=== PATIENT | female | born 1960 | race African-American/Black ===

== ENCOUNTER 2017-11-26 15:34 | Inpatient (IN) | payer OTHER ==
[2017-11-26 16:06] VITALS: BMI 23.8
--- NOTE | 2017-11-26 18:55 | HP ---
COWS - Scale Resting Pulse: 1= [place] 81-100 Sweatin= Chills/Flushing Restless Observation: 3= Extraneous Movement (TWITCHINGS) Pupil Size: 2= Moderately Dilated Bone or Joint Aches: 4=Acute Joint/Muscle Pain Runny Nose/ Eye Tearin= Runny Nose/Eyes GI Upset > 30mins: 3= Vomiting/Diarrhea (DIARRHEA) Tremor Observation: 1= Tremor [place], Not Seen Yawning Observation: 0= None Anxiety or Irritability: 2=Irritable/Anxious Goose Flesh Skin: 0=Smooth Skin COWS Score: 19 Admission [facility] Chief Complaint: WITHDRAWALS SX FROM HEROIN Allergies/Adverse Reactions: Allergies Allergy/AdvReac Type Severity Reaction Status Date / Time No Known Allergies Allergy Verified 11/26/17 17:31 History of Present Illness: 57 Y/O FEMALE WITH A HX HEROIN DEPENDENCE SEEKING DETOX [place].FIRST TIME HERE. Exam Limitations: No Limitations - Ebola screening Have you traveled outside of the country in the last 21 days: No Have you had contact with anyone from an Ebola affected area: No Have you been sick,other than usual withdrawal symptoms: No Do you have a fever: No - Review of Systems Constitutional: Chills, Loss of Appetite, Night Sweats, Changes in sleep, Unintentional Wgt. Loss EENT: reports: Blurred Vision, Tearing, Nose Congestion, Dental Problems (TOP AND BOTTOM PARTIAL DENTURES) Respiratory: reports: Shortness of Breath (ASTHMA HX-ALBUTEROL AND ADVAIR), Wheezing Cardiac: reports: Lightheadedness GI: reports: Indigestion : reports: No Symptoms Reported Musculoskeletal: reports: Back Pain, Joint Pain (HX DJD/ARTHRITIS), Muscle Pain Integumentary: reports: No Symptoms Reported Neuro: reports: Headache, Seizure (HX SEIZURES--TAKES TRILEPTA 300 MG TWICE A DAY), Dizziness Endocrine: reports: No Symptoms Reported Hematology: reports: Anemia (ON IRON/VIT SUPPLEMENTS) Psychiatric: reports: Orientated x3, Anxious, Depressed Other Systems: Reviewed and Negative Patient History - Patient Medical History Hx Anemia: Yes (ONIRON/VIT SUPPLEMENTS) Hx Asthma: Yes (ALBUTEROL/ADVAIR) Hx Chronic Obstructive Pulmonary Disease (COPD): No Hx Cardiac Disorders: No Hx Hypertension: No Hx Seizures: No Hx Diabetes: No Hx Gastrointestinal Disorders: No Hx Genitourinary Disorders: No Hx Sexually Transmitted Disorders: No Hx Renal Disease (ESRD): No Hx Depression: Yes (AND ANXIETY-ON ZOLOFT,SEROQUEL,KLONOPIN AND VISTARIL) Hx Suicide Attempt: No Hx Bipolar Disorder: Yes Hx Schizophrenia: No - Patient Surgical History Past Surgical History: Yes Hx Neurologic Surgery: No Hx Cataract Extraction: No Hx Cardiac Surgery: No Hx Lung Surgery: No Hx Breast Surgery: No Hx Breast Biopsy: No Hx Abdominal Surgery: No Hx Appendectomy: No Hx Cholecystectomy: No Hx Genitourinary Surgery: No Hx Section: No Hx Orthopedic Surgery: No Hx Hysterectomy: No (7 YRS AGO) Anesthesia Reaction: No - PPD History Previous Implant?: Yes Documented Results: Negative w/o proof Implanted On Prior R Admission?: No PPD to be Administered?: Yes - Reproductive History Patient is a Female of Child Bearing Age (11 -55 yrs old): No (MENOPAUSAL WOMAN) LMP comment: LAST SINCE 7 YRS AGO Patient : No - Smoking Cessation Smoking history: Current every day smoker Have you smoked in the past 12 months: Yes Aproximately how many cigarettes per day: 4 Hx Chewing Tobacco Use: No Initiated information on smoking cessation: Yes 'Breaking Loose' booklet given: 11/26/17 - Substance & Tx. History Hx Alcohol Use: No (DENIES) Hx Substance Use: Yes (HEROIN) Substance Use Type: Heroin Hx Substance Use Treatment: Yes - Substances Abused Heroin Route: Inhalation Frequency: Daily Amount used: 2 bags Age of first use: 55 Date of Last Use: 11/25/17 Family Disease History - Family Disease History Family Disease History: Diabetes: Grandparent (HTN-), Mother (HTN; TRIPLE BYPASS SX-), CA: Sister (LUPUS/CA-), Other: Grandparent, Mother, Sister Admission Physical Exam BHS - Vital Signs Vital Signs: Vital Signs - 24 hr 11/26/17 16:04 Temperature 97.3 F L Pulse Rate 82 Respiratory 18 Rate Blood Pressure 96/66 - Physical General Appearance: Yes: Moderate Distress, Irritable, Anxious HEENTM: Yes: EOMI, Normocephalic, MICHAEL, Pharynx Normal, Nasal Congestion, Rhinorrhea Respiratory: Yes: Chest Non-Tender, Lungs Clear, Normal Breath Sounds, No Respiratory Distress Neck: Yes: No masses,lesions,Nodules, Supple, Trachea in good position Breast: Yes: Breast Exam Deferred Cardiology: Yes: Regular Rhythm, Regular Rate, S1, S2 Abdominal: Yes: Normal Bowel Sounds, Non Tender, Flat Genitourinary: Yes: Other (N/C) Back: Yes: Within Normal Limits Musculoskeletal: Yes: full range of Motion, Gait Steady Extremities: Yes: Normal Range of Motion, Non-Tender 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 WILL ORDER ON ADMISSION . (4) Asthma Current Visit: Yes Status: Chronic Qualifiers: Asthma severity: mild Asthma persistence: unspecified Asthma complication type: uncomplicated Qualified Code(s): J45.909 - Unspecified asthma, uncomplicated (5) Arthritis of knee, degenerative Current Visit: Yes Status: Chronic Qualifiers: Osteoarthritis type: unspecified Laterality: bilateral Qualified Code(s) : M17.0 - Bilateral primary osteoarthritis of knee (6) History of anemia Current Visit: Yes Status: Suspected (7) Anxiety and depression Current Visit: Yes Status: Chronic Cleared for Admission BHS - Detox or Rehab Detox Regimen/Protocol: Methadone [facility] Breath Alcohol Content Breath Alcohol Content: 0 Urine Drug Screen - Results Drug Screen Negative: No Urine Drug Screen Results: OPI-Opiates, TCA-Tricyclic Antidepress, OXY-Oxycodone
[2017-11-26] MEDS ORDERED: MAGNESIUM CITRATE 300 ML BOTTLE PO PRN (19:33)
[2017-11-26] MEDS ORDERED: IBUPROFEN 400 MG TABLET (FP) PO PRN (19:33)
[2017-11-26] MEDS ORDERED: guaiFENesin/D-METHORPHAN HB 10 ML UNIT-DOSE CUPS PO PRN (19:33)
[2017-11-26] MEDS ORDERED: P-EPHED 60MG/TRIPROLIDI 2.5MG TABLET PO PRN (19:33)
[2017-11-26] MEDS ORDERED: MENTHOL/PHENOL 1 EACH UD MM PRN (19:33)
[2017-11-26] MEDS ORDERED: ACETAMINOPHEN 325 MG TABLET (FP) PO PRN (19:33)
[2017-11-26] MEDS ORDERED: MAGNESIUM HYDROX 2400MG/30ML ORAL SUSPENSION 30 ML CUP PO PRN (19:33)
[2017-11-26] MEDS ORDERED: METHADONE HCL 10 MG TABLET (FOR DETOX USE ONLY) PO ONE ×3 (19:33→23:00)
[2017-11-26] MEDS ORDERED: MAG HYDROX/AL HYDROX/SIMETH 30 ML UNIT-DOSE CUP PO PRN (19:33)
[2017-11-26] MEDS ORDERED: LOPERAMIDE HCL 2 MG CAPSULE PO PRN (19:33)
[2017-11-26] MEDS: diazePAM 5 MG TABLET PO PRN (20:49)
[2017-11-26] MEDS: NICOTINE 14 MG/24 HOURS TOPICAL PATCH TD SCH (20:54)
[2017-11-26] MEDS ORDERED: MELATONIN 5 MG TABLETS PO PRN (22:00)
[2017-11-26] MEDS: THIAMINE HCL 100 MG TABLET (FP) PO SCH (22:37)
[2017-11-27 02:03] LABS: URINE APPEARANCE SLCLOUDY; URINE BILIRUBIN NEGATIVE (<2.0 mg/dL); URINE BLOOD NEGATIVE (NEGATIVE); URINE COLOR YELLOW; URINE GLUCOSE (UA) NEGATIVE (NEGATIVE); URINE KETONE NEGATIVE (NEGATIVE); URINE NITRITE NEGATIVE (NEGATIVE); URINE PROTEIN NEGATIVE (NEGATIVE); URINE UROBILINOGEN NEGATIVE mg/dL (0.2-1.0)
[2017-11-27] MEDS: diazePAM 5 MG TABLET PO PRN ×2 (02:12→10:28)
[2017-11-27 02:56] LABS: URINE LEUK ESTERASE 2+ (NEGATIVE)
[2017-11-27 03:31] LABS: EPI CELLS RARE /HPF (FEW); URINE BACTERIA RARE /hpf (NONE SEEN); URINE HYALINE CAST 1 /lpf
[2017-11-27] MEDS ORDERED: ALBUTEROL SO4 18 GM HFA INHALER IH PRN (09:08)
[2017-11-27] MEDS ORDERED: METHADONE HCL 10 MG TABLET (FOR DETOX USE ONLY) PO ONE (10:00)
[2017-11-27] MEDS ORDERED: OXcarbazepine 300 MG TABLET (UD) PO SCH (10:00)
[2017-11-27] MEDS ORDERED: PATIENT'S OWN MEDICATION (NON-FORMULARY) (Nitrofurantoin Monohyd/M-Cryst [Nitrofurantoin M PO SCH (10:00)
[2017-11-27] MEDS ORDERED: NAPROXEN 250 MG TABLET (FP) PO SCH (10:00)
[2017-11-27 10:16] LABS: ALBUMIN 3.2 g/dl (3.4-5.0); ALK PHOS 122 U/L (45-117); ANION GAP 8 (8-16); BLOOD UREA NITROGEN 13 mg/dL (7-18); CALCIUM 8.7 mg/dL (8.5-10.1); CHLORIDE 104 mmol/L (98-107); CO2 26 mmol/L (21-32); CREATININE 0.6 mg/dL (0.55-1.02); GLUCOSE,RANDOM 87 mg/dL (74-106); POTASSIUM 4.4 mmol/L (3.5-5.1); SGOT/AST 34 U/L (15-37); SGPT/ALT 23 U/L (12-78); SODIUM 138 mmol/L (136-145); TOT PROT 6.5 g/dl (6.4-8.2)
[2017-11-27 10:23] LABS: HEMATOCRIT 35.6 % (32.4-45.2); HEMOGLOBIN 11.7 GM/dL (10.7-15.3); MCH 28.6 pg (25.7-33.7); MCHC 32.8 g/dl (32.0-36.0); MEAN PLT VOLUME 6.6 fl (7.5-11.1); PLATELET COUNT 359 K/MM3 (134-434); RBC 4.09 M/mm3 (3.60-5.2); RDW 16.1 % (11.6-15.6); WHITE BLOOD COUNT 5.2 K/mm3 (4.0-10.0)
[2017-11-27] MEDS: PRENATAL VITAMINS W/ FOLIC ACID TABLET (FP) PO SCH (10:27)
[2017-11-27] MEDS: OXcarbazepine 300 MG TABLET (UD) PO SCH ×2 (10:28→22:26)
[2017-11-27] MEDS: NICOTINE 14 MG/24 HOURS TOPICAL PATCH TD SCH (10:29)
[2017-11-27] MEDS: NICOTINE POLACRILEX 2 MG GUM BC PRN (10:30)
--- NOTE | 2017-11-27 10:34 | CONSULT ---
[facility] Psychiatric Consult - Data Date of interview: 11/27/17 Admission source: [facility] Identifying data: This is 57 years old female, single, living in pen[facility], unemployed, on SSI, with history of Bipolar disorder, intoxicated with Heroin and Nicotine, seeking for detox. Patient reports psychiatric hospitalization history as well Substance Abuse History: Smoking history: Current every day smoker. Have you smoked in the past 12 months: Yes. Aproximately how many cigarettes per day: 4. Hx Chewing Tobacco Use: No. Initiated information on smoking cessation: Yes. 'Breaking Loose' booklet given: 11/26/17. - Substance & Tx. History. Hx Alcohol Use: No (DENIES). Hx Substance Use: Yes (HEROIN). Substance Use Type: Heroin. Hx Substance Use Treatment: Yes. - Substances Abused. Heroin. Route: Inhalation. Frequency: Daily. Amount used: 2 bags. Age of first use: 55. Date of Last Use: 11/25/17 Medical History: Deizure, UTI history, Asthma, Anemia history, Both Knees Arthritis Psychiatric History: Patient reports history of Bipolar diusorder, reports history of psychiatric hospitalizations wuth most recent one at [facility] 2 months ago for safety,. Patient reports taking prior to admission: Seroquel 100mg po bid. Zoloft 50mg po bid. As per computer has been on Depakote 500mg po bid Physical/Sexual Abuse/Trauma History: Denies, unclear Additional Comment: Seroquel 100mg po bid. Zoloft 50mg po bid Mental Status Exam - Mental Status Exam Alert and Oriented to: Person Cognitive Function: Fair Patient Appearance: Unkempt Mood: Sad Affect: Flat Patient Behavior: Sedated Speech Pattern: Delayed Voice Loudness: Mildly Soft/Quiet Thought Process: Circumstantial Thought Disorder: Being Controlled Hallucinations: Denies Suicidal Ideation: Denies Homicidal Ideation: Denies Insight/Judgement: Fair Sleep: Difficulty falling asleep Appetite: Fair Muscle strength/Tone: Mild Hypotonicity Gait/Station: Normal Additional Comments: Seroquel 100mg po bid. Zoloft 50mg po bid Psychiatric Findings - Problem List ([place] 1, 2,3) (1) Bipolar disorder Current Visit: Yes Status: Suspected (2) Drug-induced mood disorder Current Visit: Yes Status: Acute (3) Nicotine dependence Current Visit: Yes Status: Acute (4) Opioid dependence with withdrawal Current Visit: Yes Status: Acute (5) Anxiety and depression Current Visit: Yes Status: Chronic - Initial Treatment Plan Initial Treatment Plan: Seroquel 100mg po bid. Zoloft 50mg po bid. Depakote blood level
--- NOTE | 2017-11-27 10:55 | EKG ---
Test Reason : Blood Pressure : / mmHG Vent. Rate : 072 BPM Atrial Rate : 072 BPM P-R Int : 138 ms QRS Dur : 090 ms QT Int : 396 ms P-R-T Axes : 066 045 046 degrees QTc Int : 433 ms NORMAL SINUS RHYTHM NORMAL ECG NO PREVIOUS ECGS AVAILABLE Confirmed by NICKY LANDRY, NEERU ([id number]) on 11/27/2017 10:55:08 AM Referred By: Confirmed By:NEERU SAUNDERS MD
[2017-11-27 10:57] LABS: BILIRUBIN,TOTAL < 0.1 mg/dL (0.2-1.0)
[2017-11-27 11:19] LABS: SICKLE CELL SCREEN NEGATIVE (NEGATIVE)
[2017-11-27] MEDS ORDERED: SERTRALINE HCL 50 MG TABLET (FP) PO STA (11:27)
[2017-11-27] MEDS ORDERED: QUEtiapine FUMARATE 100 MG TABLET (FP) PO STA (11:27)
[2017-11-27] MEDS: NITROFURANTOIN MACROCRYSTAL 50 MG CAPSULE (FP) PO SCH ×2 (11:46→18:57)
--- NOTE | 2017-11-27 11:55 | PN ---
S COWS - Scale Resting Pulse: 1= [place] 81-100 Sweatin= Chills/Flushing Restless Observation: 1= Difficult to Sit Still Pupil Size: 0= Normal to Room Light Bone or Joint Aches: 2= Severe Diffuse Aches Runny Nose/ Eye Tearin= Nasal Congestion GI Upset > 30mins: 2= Nausea/Diarrhea Tremor Observation of Outstretched Hands: 1= Tremor [place], Not Seen Yawning Observation: 1= 1-2x During Session Anxiety or Irritability: 2=Irritable/Anxious Goose Flesh Skin: 3=Piloerection COWS Score: 15 [facility] Progress Note (SOAP) Subjective: nause, swets, interruped sleep,a nxiety, trmeors, bodys aches reported Objective: 11/27/17 11:54 Vital Signs - 24 hr 11/26/17 11/26/17 11/27/17 16:04 22:36 00:30 Temperature 97.3 F L 96.8 F L Pulse Rate 82 74 Respiratory 18 18 18 Rate Blood Pressure 96/66 128/78 11/27/17 11/27/17 11/27/17 03:30 06:47 10:00 Temperature 97.4 F L 97.2 F L Pulse Rate 68 74 Respiratory 18 16 18 Rate Blood Pressure 125/71 112/63 Laboratory Tests 11/26/17 11/27/17 11/27/17 23:54 07:30 07:30 WBC 5.2 RBC 4.09 Hgb 11.7 Hct 35.6 MCV 87.0 MCH 28.6 MCHC 32.8 RDW 16.1 H Plt Count 359 MPV 6.6 L Sickle Cell Screen Negative Sodium Potassium Chloride Carbon Dioxide Anion Gap BUN Creatinine Creat Clearance w eGFR Random Glucose Calcium Total Bilirubin AST ALT Alkaline Phosphatase Total Protein Albumin Urine Color Yellow Urine Appearance Slcloudy Urine pH 5.0 Ur Specific [place] 1.024 Urine Protein Negative Urine Glucose (UA) Negative Urine Ketones Negative Urine Blood Negative Urine Nitrite Negative Urine Bilirubin Negative Urine Urobilinogen Negative Ur Leukocyte Esterase 2+ H Urine WBC (Auto) 8 Urine RBC (Auto) 12 Ur Epithelial Cells Rare Urine Bacteria Rare Hyaline Casts 1 RPR Titer HIV 1&2 Antibody Screen Negative HIV P24 Antigen Negative 11/27/17 11/27/17 07:30 07:30 WBC RBC Hgb Hct MCV MCH MCHC RDW Plt Count MPV Sickle Cell Screen Sodium 138 Potassium 4.4 Chloride 104 Carbon Dioxide 26 Anion Gap 8 BUN 13 Creatinine 0.6 Creat Clearance w eGFR > 60 Random Glucose 87 Calcium 8.7 Total Bilirubin < 0.1 L AST 34 ALT 23 Alkaline Phosphatase 122 H Total Protein 6.5 Albumin 3.2 L Urine Color Urine Appearance Urine pH Ur Specific [place] Urine Protein Urine Glucose (UA) Urine Ketones Urine Blood Urine Nitrite Urine Bilirubin Urine Urobilinogen Ur Leukocyte Esterase Urine WBC (Auto) Urine RBC (Auto) Ur Epithelial Cells Urine Bacteria Hyaline Casts RPR Titer Nonreactive HIV 1&2 Antibody Screen HIV P24 Antigen hypoalbuminemia Assessment: 11/27/17 11:55 withdrwal sx, malnourished 2/2 substance tomer, dehydation noted cont detox, analgesia andsympotmatic relief of withdrwal indicted/ordered.
[2017-11-27] MEDS ORDERED: NITROFURANTOIN MACROCRYSTAL 50 MG CAPSULE (FP) PO SCH (12:00)
[2017-11-27] MEDS: BUDESONIDE/FORMETEROL FUMARATE 80/4.5 mcg INHALER IH SCH ×2 (13:01→22:26)
[2017-11-27] MEDS: PANTOPRAZOLE 40 MG TABLET (FP) PO SCH (13:01)
[2017-11-27] MEDS: NAPROXEN 500 MG TABLET (FP) PO SCH ×2 (13:04→23:57)
[2017-11-27] MEDS: CYCLOBENZAPRINE HCL 10 MG TABLET (FP) PO SCH ×2 (13:06→22:26)
[2017-11-27] MEDS ORDERED: QUEtiapine FUMARATE 100 MG TABLET (FP) PO SCH (22:00)
[2017-11-27] MEDS: SERTRALINE HCL 50 MG TABLET (FP) PO SCH (22:26)
[2017-11-27] MEDS: THIAMINE HCL 100 MG TABLET (FP) PO SCH (22:26)
[2017-11-27] MEDS: QUEtiapine FUMARATE 100 MG TABLET (FP) PO SCH (22:26)
[2017-11-28] MEDS: NITROFURANTOIN MACROCRYSTAL 50 MG CAPSULE (FP) PO SCH ×5 (00:35→23:23)
[2017-11-28] MEDS: diazePAM 5 MG TABLET PO PRN ×3 (00:35→20:18)
[2017-11-28] MEDS: CYCLOBENZAPRINE HCL 10 MG TABLET (FP) PO SCH ×3 (06:26→22:24)
[2017-11-28] MEDS ORDERED: METHADONE HCL 5 MG TABLET (FOR DETOX USE ONLY) PO ONE (10:00)
[2017-11-28] MEDS: SERTRALINE HCL 50 MG TABLET (FP) PO SCH ×2 (10:26→22:27)
[2017-11-28] MEDS: PRENATAL VITAMINS W/ FOLIC ACID TABLET (FP) PO SCH (10:26)
[2017-11-28] MEDS: OXcarbazepine 300 MG TABLET (UD) PO SCH ×2 (10:27→22:26)
[2017-11-28] MEDS: PANTOPRAZOLE 40 MG TABLET (FP) PO SCH (10:27)
[2017-11-28] MEDS: QUEtiapine FUMARATE 100 MG TABLET (FP) PO SCH ×2 (10:27→22:26)
[2017-11-28] MEDS: BUDESONIDE/FORMETEROL FUMARATE 80/4.5 mcg INHALER IH SCH ×2 (10:27→22:27)
[2017-11-28] MEDS: NAPROXEN 500 MG TABLET (FP) PO SCH (10:27)
[2017-11-28] MEDS: NICOTINE 14 MG/24 HOURS TOPICAL PATCH TD SCH (10:32)
[2017-11-28] MEDS ORDERED: HALOPERIDOL 2 MG TABLET PO STA (10:35)
[2017-11-28] MEDS ORDERED: diphenhydrAMINE HCL 25 MG CAPSULE (FP) PO STA (10:36)
[2017-11-28] MEDS ORDERED: HALOPERIDOL 1 MG TABLET (FP) PO ONE (10:37)
--- NOTE | 2017-11-28 10:41 | PN ---
Psychiatric Progress Note Vital Signs: Vital Signs Period Temp Pulse Resp BP Sys/Zazueta Pulse Ox Last 24 Hr 96.4 F-98.2 F 72-83 16-20 101-134/60-74 Date of Session: 11/28/17 Chief Complaint:: Anxiety, irritability, agitation HPI: Patient reports agitated and irritable day time asking for medicastions aid Current Medications: Active Medications Generic Name Dose Route Start Last Admin Trade Name Freq PRN Reason Stop Dose Admin Acetaminophen 650 mg 11/26/17 19:33 Tylenol - PO Q4H PRN FEVER Al Hydroxide/Mg Hydroxide 30 ml 11/26/17 19:33 Mylanta Oral Suspension - PO Q6H PRN DYSPEPSIA Albuterol Sulfate 2 puff 11/27/17 09:08 Ventolin Hfa Inhaler - IH Q4H PRN ASTHMA Budesonide/Formoterol Fumarate 2 puff 11/27/17 12:00 11/28/17 10:27 Symbicort 80/4.5mcg - IH 2 puff BID PING Administration Cyclobenzaprine HCl 10 mg 11/27/17 14:00 11/28/17 06:26 Flexeril - PO 10 mg TID PING Administration Diazepam 10 mg 11/26/17 19:33 11/28/17 10:30 Valium - PO 11/29/17 19:32 10 mg Q4H PRN Administration WITHDRAWAL(CONT SUBST) Eucalyptus/Menthol/Phenol/Sorbitol 1 each 11/26/17 19:33 Cepastat Lozenge - MM Q4H PRN SORE THROAT Guaifenesin 10 ml 11/26/17 19:33 Robitussin Dm - PO Q6H PRN COUGH Haloperidol 1 mg 11/28/17 10:37 Haldol - PO 11/28/17 10:38 ONCE ONE Haloperidol 2 mg 11/28/17 10:38 Haldol - PO Q4HWA PRN ANXIETY Loperamide HCl 4 mg 11/26/17 19:33 Imodium - PO Q6H PRN DIARRHEA Magnesium Citrate 300 ml 11/26/17 19:33 Citroma - PO Q48H PRN CONSTIPATION Magnesium Hydroxide 30 ml 11/26/17 19:33 Milk Of Magnesia - PO DAILY PRN CONSTIPATION Melatonin 5 mg 11/26/17 22:00 Melatonin PO HS PRN INSOMNIA Methadone HCl 5 mg 12/01/17 06:00 Dolophine - PO 12/01/17 06:01 ONCE@0600 ONE Methadone HCl 15 mg 11/29/17 10:00 Dolophine - PO 11/29/17 10:01 ONCE ONE Methadone HCl 10 mg 11/30/17 10:00 Dolophine - PO 11/30/17 10:01 ONCE ONE Naproxen 500 mg 11/27/17 12:00 11/28/17 10:27 Naprosyn - PO 500 mg BID PING Administration Nicotine 14 mg 11/26/17 19:45 11/28/17 10:32 Nicoderm Patch - TD Not Given DAILY PING Nicotine Polacrilex 2 mg 11/26/17 19:33 11/27/17 10:30 Nicorette Gum - BC 2 mg Q2H PRN Administration NICOTINE REPLACEMENT RX Nitrofurantoin Macrocrystals 50 mg 11/27/17 12:00 11/28/17 06:26 Macrodantin - PO 12/02/17 06:01 50 mg Q6HPO PING Administration Oxcarbazepine 300 mg 11/27/17 10:00 11/28/17 10:27 Trileptal - PO 300 mg BID PING Administration Pantoprazole Sodium 40 mg 11/27/17 12:00 11/28/17 10:27 Protonix - PO 40 mg DAILY PING Administration Multivit/Folic Acid/Iron 1 tab 11/27/17 10:00 11/28/17 10:26 Vitamins (Sjr) - PO 1 tab DAILY PING Administration Pseudoephedrine/Triprolidine 1 combo 11/26/17 19:33 Actifed - PO TID PRN NASAL CONGESTION Quetiapine Fumarate 100 mg 11/27/17 22:00 11/28/17 10:27 Seroquel - PO 100 mg BID PING Administration Sertraline HCl 50 mg 11/27/17 22:00 11/28/17 10:26 Zoloft - PO 50 mg BID PING Administration Thiamine HCl 100 mg 11/26/17 22:00 11/27/17 22:26 Vitamin B1 - PO 100 mg HS PING Administration Medication(s) Change(s): Haldol 2mg po stat. Benadryl 25mg po stat. Haldol 1mg po prn q4 for anxiety Mental Status Exam - Mental Status Exam Alert and Oriented to: Place, Person Cognitive Function: Fair Patient Appearance: Well Groomed Mood: Anxious, Irritable Affect: Mood Congruent Patient Behavior: Cooperative Speech Pattern: Appropriate Voice Loudness: Mildly Soft/Quiet Thought Process: Goal Oriented Thought Disorder: Being Controlled Hallucinations: Denies Suicidal Ideation: Denies Homicidal Ideation: Denies Insight/Judgement: Fair Sleep: Difficulty falling asleep Appetite: Fair Muscle strength/Tone: Normal Gait/Station: Normal Additional Comments: Haldol 2mg po stat. Benadryl 25mg po stat. Haldol 1mg po prn q4 for anxiety Psychiatric Treatment Plan - Problem List (1) Bipolar disorder Current Visit: Yes (2) Drug-induced mood disorder Current Visit: Yes (3) Nicotine dependence Current Visit: Yes (4) Opioid dependence with withdrawal Current Visit: Yes (5) Anxiety and depression Current Visit: Yes Initial treatment plan: Haldol 2mg po stat. Benadryl 25mg po stat. Haldol 1mg po prn q4 for anxiety
--- NOTE | 2017-11-28 10:50 | PN ---
S COWS - Scale Resting Pulse: 1= [place] 81-100 Sweatin= Chills/Flushing Restless Observation: 1= Difficult to Sit Still Pupil Size: 0= Normal to Room Light Bone or Joint Aches: 2= Severe Diffuse Aches Runny Nose/ Eye Tearin= Nasal Congestion GI Upset > 30mins: 1= Stomach Cramp Tremor Observation of Outstretched Hands: 1= Tremor [place], Not Seen Yawning Observation: 1= 1-2x During Session Anxiety or Irritability: 2=Irritable/Anxious Goose Flesh Skin: 3=Piloerection COWS Score: 14 S Progress Note (SOAP) Subjective: c/o body aches and knee pain from arthritis exacerbated by withdrwal sx, insomnia, anxiety, trmeors, nause, diarrhea not responding to medications ordered yesterday Objective: 11/28/17 10:48 Vital Signs - 24 hr 11/27/17 11/27/17 11/27/17 14:03 17:16 21:59 Temperature 97.9 F 98.2 F 96.4 F L Pulse Rate 83 83 74 Respiratory 20 18 18 Rate Blood Pressure 134/74 101/60 112/60 11/28/17 11/28/17 03:30 06:00 Temperature 97.5 F L Pulse Rate 72 Respiratory 18 16 Rate Blood Pressure 112/73 Laboratory Tests 11/26/17 11/27/17 11/27/17 23:54 07:30 07:30 WBC 5.2 RBC 4.09 Hgb 11.7 Hct 35.6 MCV 87.0 MCH 28.6 MCHC 32.8 RDW 16.1 H Plt Count 359 MPV 6.6 L Sickle Cell Screen Negative Sodium Potassium Chloride Carbon Dioxide Anion Gap BUN Creatinine Creat Clearance w eGFR Random Glucose Calcium Total Bilirubin AST ALT Alkaline Phosphatase Total Protein Albumin Urine Color Yellow Urine Appearance Slcloudy Urine pH 5.0 Ur Specific [place] 1.024 Urine Protein Negative Urine Glucose (UA) Negative Urine Ketones Negative Urine Blood Negative Urine Nitrite Negative Urine Bilirubin Negative Urine Urobilinogen Negative Ur Leukocyte Esterase 2+ H Urine WBC (Auto) 8 Urine RBC (Auto) 12 Ur Epithelial Cells Rare Urine Bacteria Rare Hyaline Casts 1 RPR Titer HIV 1&2 Antibody Screen Negative HIV P24 Antigen Negative 11/27/17 11/27/17 07:30 07:30 WBC RBC Hgb Hct MCV MCH MCHC RDW Plt Count MPV Sickle Cell Screen Sodium 138 Potassium 4.4 Chloride 104 Carbon Dioxide 26 Anion Gap 8 BUN 13 Creatinine 0.6 Creat Clearance w eGFR > 60 Random Glucose 87 Calcium 8.7 Total Bilirubin < 0.1 L AST 34 ALT 23 Alkaline Phosphatase 122 H Total Protein 6.5 Albumin 3.2 L Urine Color Urine Appearance Urine pH Ur Specific [place] Urine Protein Urine Glucose (UA) Urine Ketones Urine Blood Urine Nitrite Urine Bilirubin Urine Urobilinogen Ur Leukocyte Esterase Urine WBC (Auto) Urine RBC (Auto) Ur Epithelial Cells Urine Bacteria Hyaline Casts RPR Titer Nonreactive HIV 1&2 Antibody Screen HIV P24 Antigen abnoramal u/a, low albumin Assessment: 11/28/17 10:49 withdrawal sx - cont detox, fluiids, pain managment adjustment for sciatic and arhtritic knee pain.
[2017-11-28] MEDS: cloNIDine HCL 0.1 MG TABLET PO SCH ×2 (11:01→22:24)
[2017-11-28] MEDS: LIDOCAINE 5% TOPICAL PATCH TP SCH (11:03)
[2017-11-28] MEDS: GABAPENTIN 100 MG CAPSULE (FP) PO SCH ×2 (13:53→22:24)
[2017-11-28] MEDS: LIDOCAINE PATCH REMOVAL MC SCH (22:24)
[2017-11-28] MEDS: NORTRIPTYLINE HCL 10 MG CAPSULE PO SCH (22:25)
[2017-11-28] MEDS: THIAMINE HCL 100 MG TABLET (FP) PO SCH (22:27)
[2017-11-29] MEDS: HALOPERIDOL 2 MG TABLET PO PRN ×2 (01:20→10:34)
[2017-11-29] MEDS: GABAPENTIN 100 MG CAPSULE (FP) PO SCH ×3 (06:03→22:51)
[2017-11-29] MEDS: CYCLOBENZAPRINE HCL 10 MG TABLET (FP) PO SCH ×3 (06:04→22:51)
[2017-11-29] MEDS: NITROFURANTOIN MACROCRYSTAL 50 MG CAPSULE (FP) PO SCH ×4 (06:04→23:42)
[2017-11-29] MEDS ORDERED: METHADONE HCL 5 MG TABLET (FOR DETOX USE ONLY) PO ONE (10:00)
[2017-11-29] MEDS: PRENATAL VITAMINS W/ FOLIC ACID TABLET (FP) PO SCH (10:31)
[2017-11-29] MEDS: diazePAM 5 MG TABLET PO PRN ×2 (10:31→17:13)
[2017-11-29] MEDS: OXcarbazepine 300 MG TABLET (UD) PO SCH ×2 (10:31→22:51)
[2017-11-29] MEDS: LIDOCAINE 5% TOPICAL PATCH TP SCH (10:32)
[2017-11-29] MEDS: BUDESONIDE/FORMETEROL FUMARATE 80/4.5 mcg INHALER IH SCH ×2 (10:32→22:50)
[2017-11-29] MEDS: SERTRALINE HCL 50 MG TABLET (FP) PO SCH ×2 (10:32→22:51)
[2017-11-29] MEDS: QUEtiapine FUMARATE 100 MG TABLET (FP) PO SCH ×2 (10:32→22:51)
[2017-11-29] MEDS: cloNIDine HCL 0.1 MG TABLET PO SCH ×2 (10:32→22:51)
[2017-11-29] MEDS: NICOTINE 14 MG/24 HOURS TOPICAL PATCH TD SCH (10:33)
--- NOTE | 2017-11-29 11:56 | PN ---
[facility] Progress Note (SOAP) Subjective: interrupted sleep, sweats, left knee pain better with lidocaine patch Objective: 11/29/17 11:54 Vital Signs Temp 96.4 F L 11/29/17 10:00 Pulse 80 11/29/17 10:00 Resp 17 11/29/17 10:00 BP 115/73 11/29/17 10:00 Pulse Ox Intake & Output 11/28/17 11/28/17 11/29/17 11:59 23:59 11:59 Other: Voiding Method Toilet Toilet Laboratory Tests 11/26/17 11/27/17 11/27/17 23:54 07:30 07:30 WBC 5.2 RBC 4.09 Hgb 11.7 Hct 35.6 MCV 87.0 MCH 28.6 MCHC 32.8 RDW 16.1 H Plt Count 359 MPV 6.6 L Sickle Cell Screen Negative Sodium Potassium Chloride Carbon Dioxide Anion Gap BUN Creatinine Creat Clearance w eGFR Random Glucose Calcium Total Bilirubin AST ALT Alkaline Phosphatase Total Protein Albumin Urine Color Yellow Urine Appearance Slcloudy Urine pH 5.0 Ur Specific [place] 1.024 Urine Protein Negative Urine Glucose (UA) Negative Urine Ketones Negative Urine Blood Negative Urine Nitrite Negative Urine Bilirubin Negative Urine Urobilinogen Negative Ur Leukocyte Esterase 2+ H Urine WBC (Auto) 8 Urine RBC (Auto) 12 Ur Epithelial Cells Rare Urine Bacteria Rare Hyaline Casts 1 RPR Titer HIV 1&2 Antibody Screen Negative HIV P24 Antigen Negative 11/27/17 11/27/17 07:30 07:30 WBC RBC Hgb Hct MCV MCH MCHC RDW Plt Count MPV Sickle Cell Screen Sodium 138 Potassium 4.4 Chloride 104 Carbon Dioxide 26 Anion Gap 8 BUN 13 Creatinine 0.6 Creat Clearance w eGFR > 60 Random Glucose 87 Calcium 8.7 Total Bilirubin < 0.1 L AST 34 ALT 23 Alkaline Phosphatase 122 H Total Protein 6.5 Albumin 3.2 L Urine Color Urine Appearance Urine pH Ur Specific [place] Urine Protein Urine Glucose (UA) Urine Ketones Urine Blood Urine Nitrite Urine Bilirubin Urine Urobilinogen Ur Leukocyte Esterase Urine WBC (Auto) Urine RBC (Auto) Ur Epithelial Cells Urine Bacteria Hyaline Casts RPR Titer Nonreactive HIV 1&2 Antibody Screen HIV P24 Antigen pt aox3 ambulating Assessment: 11/29/17 11:54 withdrawal sxs left knee pain improved Plan: cont. detox increase fluids cont lidocaine patch
[2017-11-29] MEDS: THIAMINE HCL 100 MG TABLET (FP) PO SCH (22:50)
[2017-11-29] MEDS: NORTRIPTYLINE HCL 10 MG CAPSULE PO SCH (22:52)
[2017-11-29] MEDS: LIDOCAINE PATCH REMOVAL MC SCH (22:52)
[2017-11-29] MEDS: NICOTINE POLACRILEX 2 MG GUM BC PRN (22:52)
[2017-11-30] MEDS: NITROFURANTOIN MACROCRYSTAL 50 MG CAPSULE (FP) PO SCH ×4 (06:25→23:31)
[2017-11-30] MEDS: CYCLOBENZAPRINE HCL 10 MG TABLET (FP) PO SCH ×3 (06:25→22:34)
[2017-11-30] MEDS: GABAPENTIN 100 MG CAPSULE (FP) PO SCH ×3 (06:25→22:34)
[2017-11-30] MEDS: NICOTINE POLACRILEX 2 MG GUM BC PRN ×3 (06:28→13:23)
[2017-11-30] MEDS ORDERED: METHADONE HCL 10 MG TABLET (FOR DETOX USE ONLY) PO ONE (10:00)
[2017-11-30] MEDS: SERTRALINE HCL 50 MG TABLET (FP) PO SCH ×2 (10:41→22:34)
[2017-11-30] MEDS: QUEtiapine FUMARATE 100 MG TABLET (FP) PO SCH ×2 (10:41→22:34)
[2017-11-30] MEDS: BUDESONIDE/FORMETEROL FUMARATE 80/4.5 mcg INHALER IH SCH ×2 (10:41→22:35)
[2017-11-30] MEDS: OXcarbazepine 300 MG TABLET (UD) PO SCH ×2 (10:41→22:34)
[2017-11-30] MEDS: cloNIDine HCL 0.1 MG TABLET PO SCH ×2 (10:41→22:34)
[2017-11-30] MEDS: NICOTINE 14 MG/24 HOURS TOPICAL PATCH TD SCH (10:42)
[2017-11-30] MEDS: LIDOCAINE 5% TOPICAL PATCH TP SCH (10:42)
[2017-11-30] MEDS: PRENATAL VITAMINS W/ FOLIC ACID TABLET (FP) PO SCH (10:42)
[2017-11-30] MEDS: HALOPERIDOL 2 MG TABLET PO PRN ×2 (10:43→18:16)
--- NOTE | 2017-11-30 16:11 | PN ---
[facility] Progress Note (SOAP) Subjective: ALERT,IRRITABLE,INTERRUPTED SLEEP Objective: 11/30/17 16:10 Vital Signs Temperature 97.7 F 11/30/17 15:18 Pulse Rate 105 H 11/30/17 15:18 Respiratory Rate 18 11/30/17 15:18 Blood Pressure 114/69 11/30/17 15:18 O2 Sat by Pulse Oximetry (%) Assessment: 11/30/17 16:10 WITHDRAWAL SYMPTOM Plan: CONTINUE DETOX,DISCHARGE IN AM
[2017-11-30] MEDS: NORTRIPTYLINE HCL 10 MG CAPSULE PO SCH (22:35)
[2017-11-30] MEDS: THIAMINE HCL 100 MG TABLET (FP) PO SCH (23:22)
[2017-11-30] MEDS: LIDOCAINE PATCH REMOVAL MC SCH (23:22)
[2017-12-01] MEDS ORDERED: METHADONE HCL 5 MG TABLET (FOR DETOX USE ONLY) PO ONE (06:00)
[2017-12-01] MEDS: CYCLOBENZAPRINE HCL 10 MG TABLET (FP) PO SCH (06:14)
[2017-12-01] MEDS: NITROFURANTOIN MACROCRYSTAL 50 MG CAPSULE (FP) PO SCH (06:14)
[2017-12-01] MEDS: GABAPENTIN 100 MG CAPSULE (FP) PO SCH (06:14)
[2017-12-01 07:44] VITALS: BP 97/56; PULSE 74; TEMP 95.4
[2017-12-01] MEDS: LIDOCAINE 5% TOPICAL PATCH TP SCH (09:16)
--- NOTE | 2017-12-01 09:26 | DS ---
[facility] Detox Discharge Summary Admission Date: 11/26/17 Discharge Date: 12/01/17 - History Present History: Opioid Dependence Additional Comments: patient admitted for opiate detox patient completed opiate detox regimen is doing well denies opiate withdrawal sx denies pain alert oriented x [facility] aftercare - Physical Exam Results Vital Signs: Vital Signs Temperature 95.4 F L 12/01/17 07:43 Pulse Rate 74 12/01/17 07:43 Respiratory Rate 16 12/01/17 07:43 Blood Pressure 97/56 12/01/17 07:43 O2 Sat by Pulse Oximetry (%) Pertinent Admission Physical Exam Findings: withdrawal sx Vital Signs Temperature 95.4 F L 12/01/17 07:43 Pulse Rate 74 12/01/17 07:43 Respiratory Rate 16 12/01/17 07:43 Blood Pressure 97/56 12/01/17 07:43 O2 Sat by Pulse Oximetry (%) Laboratory Last Values WBC 5.2 K/mm3 (4.0-10.0) 11/27/17 07:30 RBC 4.09 M/mm3 (3.60-5.2) 11/27/17 07:30 Hgb 11.7 GM/dL (10.7-15.3) 11/27/17 07:30 Hct 35.6 % (32.4-45.2) 11/27/17 07:30 MCV 87.0 fl (80-96) 11/27/17 07:30 MCH 28.6 pg (25.7-33.7) 11/27/17 07:30 MCHC 32.8 g/dl (32.0-36.0) 11/27/17 07:30 RDW 16.1 % (11.6-15.6) H 11/27/17 07:30 Plt Count 359 K/MM3 (134-434) 11/27/17 07:30 MPV 6.6 fl (7.5-11.1) L 11/27/17 07:30 Sickle Cell Screen Negative (NEGATIVE) 11/27/17 07:30 Sodium 138 mmol/L (136-145) 11/27/17 07:30 Potassium 4.4 mmol/L (3.5-5.1) 11/27/17 07:30 Chloride 104 mmol/L (98-107) 11/27/17 07:30 Carbon Dioxide 26 mmol/L (21-32) 11/27/17 07:30 Anion Gap 8 (8-16) 11/27/17 07:30 BUN 13 mg/dL (7-18) 11/27/17 07:30 Creatinine 0.6 mg/dL (0.55-1.02) 11/27/17 07:30 Creat Clearance w eGFR > 60 (>60) 11/27/17 07:30 Random Glucose 87 mg/dL (74-106) 11/27/17 07:30 Calcium 8.7 mg/dL (8.5-10.1) 11/27/17 07:30 Total Bilirubin < 0.1 mg/dL (0.2-1.0) L 11/27/17 07:30 AST 34 U/L (15-37) 11/27/17 07:30 ALT 23 U/L (12-78) 11/27/17 07:30 Alkaline Phosphatase 122 U/L (45-117) H 11/27/17 07:30 Total Protein 6.5 g/dl (6.4-8.2) 11/27/17 07:30 Albumin 3.2 g/dl (3.4-5.0) L 11/27/17 07:30 Urine Color Yellow 11/26/17 23:54 Urine Appearance Slcloudy 11/26/17 23:54 Urine pH 5.0 (5.0-8.0) 11/26/17 23:54 Ur Specific Post 1.024 (1.001-1.035) 11/26/17 23:54 Urine Protein Negative (NEGATIVE) 11/26/17 23:54 Urine Glucose (UA) Negative (NEGATIVE) 11/26/17 23:54 Urine Ketones Negative (NEGATIVE) 11/26/17 23:54 Urine Blood Negative (NEGATIVE) 11/26/17 23:54 Urine Nitrite Negative (NEGATIVE) 11/26/17 23:54 Urine Bilirubin Negative (<2.0 mg/dL) 11/26/17 23:54 Urine Urobilinogen Negative mg/dL (0.2-1.0) 11/26/17 23:54 Ur Leukocyte Esterase 2+ (NEGATIVE) H 11/26/17 23:54 Urine WBC (Auto) 8 /hpf (3-5) 11/26/17 23:54 Urine RBC (Auto) 12 /hpf (0-3) 11/26/17 23:54 Ur Epithelial Cells Rare /HPF (FEW) 11/26/17 23:54 Urine Bacteria Rare /hpf (NONE SEEN) 11/26/17 23:54 Hyaline Casts 1 /lpf 11/26/17 23:54 RPR Titer Nonreactive (NONREACTIVE) 11/27/17 07:30 HIV 1&2 Antibody Screen Negative 11/27/17 07:30 HIV P24 Antigen Negative 11/27/17 07:30 lab noted - Treatment Hospital Course: Detox Protocol Followed, Detoxed Safely, Responded well, Discharged Condition Good, Rehab Referral Accepted Patient has Accepted a Rehab Referral to: [facility] - Medication Discharge Medications: Ambulatory Orders Clonazepam [Klonopin] 2 mg PO BID 11/26/17 Cyclobenzaprine HCl 1 tab PO TID 11/26/17 Nitrofurantoin Monohyd/M-Cryst [Nitrofurantoin Bucks-Mcr 100 mg] 1 cap PO BID Quetiapine Fumarate [Seroquel -] 500 mg PO BID 11/26/17 Sertraline HCl [Zoloft -] 50 mg PO BID 11/26/17 Quetiapine Fumarate [Seroquel] 100 mg PO BID #60 tablet 11/27/17 Quetiapine Fumarate [Seroquel] 100 mg PO HS #30 tablet 11/27/17 Sertraline HCl [Zoloft -] 50 mg PO BID #60 tablet 11/27/17 Albuterol Sulfate Inhaler - [Ventolin HFA Inhaler -] 2 puff IH Q4H PRN #1 inhaler 11/30/17 Budesonide/Formeterol Fumarate [SYMBICORT 80/4.5mcg -] 2 puff IH BID #1 inhaler 11/30/17 Naproxen [Naprosyn -] 250 mg PO BID PRN #14 tablet 11/30/17 Nitrofurantoin Macrocrystal [Macrodantin -] 50 mg PO Q6HPO #20 capsule 11/30/17 Fluticasone/Salmeterol [Advair 250-50 Diskus] 1 puff IH BID #1 blst.w.dev Oxcarbazepine 300 mg PO BID #28 tablet 12/01/17 - Diagnosis (1) Asthma Current Visit: Yes Status: Chronic Qualifiers: Asthma severity: mild Asthma persistence: unspecified Asthma complication type: uncomplicated Qualified Code(s): J45.909 - Unspecified asthma, uncomplicated (2) Opioid dependence with withdrawal Current Visit: Yes Status: Chronic (3) Seizure disorder Current Visit: Yes Status: Chronic - AMA Did Patient Leave Against Medical Advice: No
[2017-12-01] MEDS: PRENATAL VITAMINS W/ FOLIC ACID TABLET (FP) PO SCH (09:33)
[2017-12-01] MEDS: BUDESONIDE/FORMETEROL FUMARATE 80/4.5 mcg INHALER IH SCH (09:33)
[2017-12-01] MEDS: SERTRALINE HCL 50 MG TABLET (FP) PO SCH (09:33)
[2017-12-01] MEDS: QUEtiapine FUMARATE 100 MG TABLET (FP) PO SCH (09:33)
[2017-12-01] MEDS: OXcarbazepine 300 MG TABLET (UD) PO SCH (09:33)
== END 2017-12-01 09:48 | disposition home or self-care (01) | DRG 773 ==
LOC: YASAS 15:34 → Y6N 17:53
PROVIDERS: ADMIT Internal Medicine; ATTEND Internal Medicine
PROC: HZ2ZZZZ Detoxification Services for Substance Abuse Treatment (ICD-10-PCS; principal; 2017-11-26)
DX: F11.23 Opioid dependence with withdrawal (principal); F17.210 Nicotine dependence, cigarettes, uncomplicated; F31.9 Bipolar disorder, unspecified; F41.8 Other specified anxiety disorders; F19.24 Other psychoactive substance dependence with psychoactive substance-induced mood disorder; G40.909 Epilepsy, unspecified, not intractable, without status epilepticus; D50.9 Iron deficiency anemia, unspecified
CPT/HCPCS: 36415; 80053; 81003; 81015; 85027; 85660; 86593; 87389; 93005; 93010; J0735

== ENCOUNTER 2023-05-02 18:54 | Inpatient (IN) | payer OTHER ==
[2023-05-02] MEDS ORDERED: DIVALPROEX NA *ER* EXTEND REL 500 MG TABLET.SA (FP) PO ONE (19:24)
[2023-05-02] MEDS ORDERED: ALBUTEROL SO4 2.5/IPRATROPIUM 0.5 INH SOL 3 ML VIAL.NEB. NEB ONE ×2 (19:25→20:26)
[2023-05-02] MEDS ORDERED: DIVALPROEX SODIUM 500 MG TABLET E.C. ONE (20:26)
[2023-05-02] MEDS ORDERED: SODIUM CHLORIDE 0.9% 500 ML INFUS.BAG IV ONE (20:27)
[2023-05-02] MEDS ORDERED: VANCOMYCIN 1,000 MG in DEXTROSE 5%-WATER - 250 ML IVPB ONE (21:03)
[2023-05-02] MEDS ORDERED: PIPERACILLIN/TAZOB 4.5 GM 4.5 GM in DEXTROSE 5%-WATER 100 ML IVPB ONE (21:03)
[2023-05-02] MEDS ORDERED: PIPERACILLIN/TAZOB 4.5 GM 4.5 GM/100 ML BAG IVPB ONE (21:06)
[2023-05-02] MEDS ORDERED: ACETAMINOPHEN 1000 MG/100 ML BAG IVPB ONE (21:15)
[2023-05-02 21:26] LABS: BASO % 1.2 % (0-2.0); EOS % 1.1 % (0-4.5); HEMATOCRIT 37.7 % (32.4-45.2); HEMOGLOBIN 12.2 GM/dL (10.7-15.3); LYMPH % 35.1 % (8-40); MCHC 32.3 g/dl (32.0-36.0); MEAN CELL VOLUME 89.8 fl (80-96); MEAN PLT VOLUME 7.7 fl (7.5-11.1); MONO % 7.6 % (3.8-10.2); PLATELET COUNT 391 10^3/uL (134-434); RDW 16.8 % (11.6-15.6); WHITE BLOOD COUNT 6.4 K/mm3 (4.0-10.0)
[2023-05-02 21:33] LABS: INR 1.44 (0.83-1.09); PROTHROMBIN TIME (PATIENT) 16.7 SEC (9.7-13.0)
[2023-05-02] MEDS ORDERED: ACETAMINOPHEN INJECTION 100 ML IVPB ONE (21:33)
[2023-05-02 21:35] LABS: ACTIVATED PTT 34.3 SECONDS (25.2-36.5)
[2023-05-02 22:07] LABS: POTASSIUM 4.7 mmol/L (3.5-5.1)
[2023-05-02 22:11] LABS: ALBUMIN 3.4 g/dl (3.4-5.0); MAGNESIUM 2.1 mg/dL (1.8-2.4)
[2023-05-02 22:14] LABS: CREATININE 1.1 mg/dL (0.55-1.3); PHOSPHOROUS 3.8 mg/dL (2.5-4.9)
[2023-05-02 22:15] LABS: BILIRUBIN,TOTAL 0.8 mg/dL (0.2-1)
[2023-05-02 22:16] LABS: LACTIC ACID 3.1 mmol/L (0.4-2.0); TOT PROT 7.3 g/dl (6.4-8.2)
[2023-05-02 22:19] LABS: N-TERMINAL BNP 13281.2 pg/ml (5-125)
[2023-05-02] MEDS ORDERED: VANCOMYCIN 1 GRAM (PRE-DOCKED) 1,000 MG/250 ML BAG IVPB ONE (22:23)
[2023-05-02 23:38] LABS: LACTIC ACID 3.3 mmol/L (0.4-2.0)
[2023-05-03] MEDS ORDERED: ALBUTEROL SO4 HFA INHALER IH PRN (03:53)
[2023-05-03] MEDS ORDERED: methaDONE HCL 10 MG TABLET PO SCH ×2 (09:45→10:00)
[2023-05-03] MEDS ORDERED: METOPROLOL TARTRATE 25 MG TABLET (FP) PO SCH (10:00)
[2023-05-03] MEDS ORDERED: RIVAROXABAN 20 MG TABLET PO SCH (10:00)
[2023-05-03] MEDS ORDERED: FUROSEMIDE 20 MG TABLET (FP) PO SCH (10:00)
[2023-05-03] MEDS ORDERED: NICOTINE 7 MG/24 HOURS TOPICAL PATCH TD SCH (10:00)
[2023-05-03] MEDS ORDERED: ENOXAPARIN NA (PORCINE) 40 MG/0.4 ML DISP.SYRIN SQ SCH (10:00)
[2023-05-03] MEDS: risperiDONE 0.5 MG TABLET PO SCH (10:28)
[2023-05-03] MEDS: MULTIVIT-MINERALS ORAL LIQUID PO SCH (10:28)
[2023-05-03] MEDS: CLOPIDOGREL BISULFATE 75 MG TABLET (FP) PO SCH (10:28)
[2023-05-03] MEDS: methaDONE 40 MG, methaDONE 30 MG PO SCH (10:29)
[2023-05-03] MEDS: MAGNESIUM OXIDE 400 MG TABLET (FP) PO SCH (10:29)
[2023-05-03] MEDS: METOPROLOL TARTRATE 25 MG TABLET (FP) PO SCH ×2 (10:29→11:06)
[2023-05-03] MEDS: DIGOXIN 0.125 MG TABLET PO SCH (10:35)
[2023-05-03] MEDS: FUROSEMIDE 40 MG/4 ML INJECTABLE VIAL IVPUSH SCH (11:05)
[2023-05-03 15:39] LABS: BASO % 1.4 % (0-2.0); EOS % 0.9 % (0-4.5); HEMATOCRIT 34.2 % (32.4-45.2); HEMOGLOBIN 10.7 GM/dL (10.7-15.3); MCH 28.5 pg (25.7-33.7); MCHC 31.1 g/dl (32.0-36.0); MEAN CELL VOLUME 91.6 fl (80-96); MEAN PLT VOLUME 7.9 fl (7.5-11.1); MONO % 7.7 % (3.8-10.2); PLATELET COUNT 317 10^3/uL (134-434); POTASSIUM 4.2 mmol/L (3.5-5.1); RBC 3.74 M/mm3 (3.60-5.2); RDW 17.1 % (11.6-15.6); WHITE BLOOD COUNT 7.2 K/mm3 (4.0-10.0)
[2023-05-03 15:42] LABS: CALCIUM 8.2 mg/dL (8.5-10.1)
[2023-05-03 15:43] LABS: ALBUMIN 2.7 g/dl (3.4-5.0); BLOOD UREA NITROGEN 11.5 mg/dL (7-18); MAGNESIUM 1.9 mg/dL (1.8-2.4)
[2023-05-03 15:46] LABS: CREATININE 0.9 mg/dL (0.55-1.3); PHOSPHOROUS 3.1 mg/dL (2.5-4.9)
[2023-05-03 15:47] LABS: BILIRUBIN,TOTAL 0.5 mg/dL (0.2-1); TOT PROT 5.9 g/dl (6.4-8.2)
[2023-05-03] MEDS: VALSARTAN 40 MG TABLET PO SCH ×2 (17:18→17:43)
[2023-05-03] MEDS ORDERED: RIVAROXABAN 15 MG TABLET PO SCH (18:00)
[2023-05-03] MEDS: ACETAMINOPHEN 325 MG TABLET (FP) PO PRN (21:22)
[2023-05-03] MEDS: MELATONIN 5 MG TABLETS PO SCH (21:23)
[2023-05-03] MEDS: ATORVASTATIN CA 40 MG TABLET (FP) PO SCH (21:23)
[2023-05-04 07:16] LABS: HEMATOCRIT 32.8 % (32.4-45.2); HEMOGLOBIN 10.2 GM/dL (10.7-15.3); MCH 28.3 pg (25.7-33.7); MCHC 31.2 g/dl (32.0-36.0); MEAN CELL VOLUME 90.7 fl (80-96); MEAN PLT VOLUME 7.8 fl (7.5-11.1); PLATELET COUNT 317 10^3/uL (134-434); RBC 3.62 M/mm3 (3.60-5.2); WHITE BLOOD COUNT 5.5 K/mm3 (4.0-10.0)
[2023-05-04 07:38] LABS: POTASSIUM 3.9 mmol/L (3.5-5.1)
[2023-05-04 07:44] LABS: CALCIUM 8.3 mg/dL (8.5-10.1)
[2023-05-04 07:45] LABS: ALBUMIN 2.5 g/dl (3.4-5.0); MAGNESIUM 1.8 mg/dL (1.8-2.4)
[2023-05-04 07:48] LABS: CREATININE 0.9 mg/dL (0.55-1.3); PHOSPHOROUS 3.8 mg/dL (2.5-4.9)
[2023-05-04 07:49] LABS: BILIRUBIN,TOTAL 0.6 mg/dL (0.2-1); TOT PROT 5.6 g/dl (6.4-8.2)
[2023-05-04] MEDS: MAGNESIUM OXIDE 400 MG TABLET (FP) PO SCH (09:44)
[2023-05-04] MEDS: DIGOXIN 0.125 MG TABLET PO SCH (09:44)
[2023-05-04] MEDS: CLOPIDOGREL BISULFATE 75 MG TABLET (FP) PO SCH (09:44)
[2023-05-04] MEDS: risperiDONE 0.5 MG TABLET PO SCH (09:44)
[2023-05-04] MEDS: VALSARTAN 40 MG TABLET PO SCH (09:50)
[2023-05-04] MEDS: FUROSEMIDE 40 MG/4 ML INJECTABLE VIAL IVPUSH SCH (09:50)
[2023-05-04] MEDS: metoPROLOL SUCCINATE 25 MG TAB.SR.24H (FP) PO SCH (09:53)
[2023-05-04] MEDS: NICOTINE 14 MG/24 HOURS TOPICAL PATCH TD SCH (09:53)
[2023-05-04] MEDS ORDERED: methaDONE HCL 10 MG TABLET PO SCH (10:00)
[2023-05-04] MEDS: MULTIVIT-MINERALS ORAL LIQUID PO SCH (10:00)
[2023-05-04] MEDS ORDERED: methaDONE HCL 10 MG TABLET PO ONE (10:15)
[2023-05-04] MEDS: methaDONE 40 MG, methaDONE 30 MG PO SCH (10:46)
[2023-05-04] MEDS: DIVALPROEX SODIUM 500 MG TABLET E.C. PO SCH ×2 (13:37→21:36)
[2023-05-04] MEDS: RIVAROXABAN 15 MG TABLET PO SCH (17:47)
[2023-05-04] MEDS: ATORVASTATIN CA 40 MG TABLET (FP) PO SCH (21:36)
[2023-05-04] MEDS: ACETAMINOPHEN 325 MG TABLET (FP) PO PRN (21:36)
[2023-05-04] MEDS: MELATONIN 5 MG TABLETS PO SCH (21:36)
[2023-05-04] MEDS ORDERED: MELATONIN 5 MG TABLETS PO SCH (22:00)
[2023-05-04 23:30] VITALS: BMI 10.8
[2023-05-05 08:07] LABS: HEMOGLOBIN 11.4 GM/dL (10.7-15.3); MCHC 31.7 g/dl (32.0-36.0); MEAN CELL VOLUME 91.5 fl (80-96); MEAN PLT VOLUME 7.8 fl (7.5-11.1); PLATELET COUNT 343 10^3/uL (134-434); RBC 3.93 M/mm3 (3.60-5.2); RDW 16.9 % (11.6-15.6); WHITE BLOOD COUNT 6.2 K/mm3 (4.0-10.0)
[2023-05-05 08:21] LABS: POTASSIUM 3.7 mmol/L (3.5-5.1)
[2023-05-05 08:23] LABS: CALCIUM 8.5 mg/dL (8.5-10.1)
[2023-05-05 08:24] LABS: ALBUMIN 2.8 g/dl (3.4-5.0); BLOOD UREA NITROGEN 10.2 mg/dL (7-18); MAGNESIUM 1.8 mg/dL (1.8-2.4)
[2023-05-05 08:27] LABS: CREATININE 0.8 mg/dL (0.55-1.3); PHOSPHOROUS 3.7 mg/dL (2.5-4.9)
[2023-05-05 08:28] LABS: BILIRUBIN,TOTAL 0.4 mg/dL (0.2-1); TOT PROT 6.2 g/dl (6.4-8.2)
[2023-05-05] MEDS: methaDONE 40 MG, methaDONE 30 MG PO SCH (09:15)
[2023-05-05] MEDS: metoPROLOL SUCCINATE 25 MG TAB.SR.24H (FP) PO SCH (10:54)
[2023-05-05] MEDS: CLOPIDOGREL BISULFATE 75 MG TABLET (FP) PO SCH (10:55)
[2023-05-05] MEDS: FUROSEMIDE 40 MG/4 ML INJECTABLE VIAL IVPUSH SCH (10:55)
[2023-05-05] MEDS: MULTIVIT-MINERALS ORAL LIQUID PO SCH (10:55)
[2023-05-05] MEDS: DIVALPROEX SODIUM 500 MG TABLET E.C. PO SCH ×2 (10:55→21:36)
[2023-05-05] MEDS: VALSARTAN 40 MG TABLET PO SCH (10:55)
[2023-05-05] MEDS: DIGOXIN 0.125 MG TABLET PO SCH (10:55)
[2023-05-05] MEDS: NICOTINE 14 MG/24 HOURS TOPICAL PATCH TD SCH (10:55)
[2023-05-05] MEDS: MAGNESIUM OXIDE 400 MG TABLET (FP) PO SCH (11:01)
[2023-05-05] MEDS: risperiDONE 0.5 MG TABLET PO SCH (11:01)
[2023-05-05] MEDS: RIVAROXABAN 15 MG TABLET PO SCH (17:38)
[2023-05-05] MEDS: ACETAMINOPHEN 325 MG TABLET (FP) PO PRN (21:36)
[2023-05-05] MEDS: ATORVASTATIN CA 40 MG TABLET (FP) PO SCH (21:36)
[2023-05-05] MEDS: MELATONIN 5 MG TABLETS PO SCH (21:37)
[2023-05-06 08:15] LABS: BLOOD UREA NITROGEN 8.8 mg/dL (7-18)
[2023-05-06 08:18] LABS: CALCIUM 8.7 mg/dL (8.5-10.1); PHOSPHOROUS 3.6 mg/dL (2.5-4.9)
[2023-05-06 08:19] LABS: MAGNESIUM 1.8 mg/dL (1.8-2.4)
[2023-05-06 08:23] LABS: CREATININE 0.7 mg/dL (0.55-1.3)
[2023-05-06 08:27] LABS: HEMATOCRIT 37.7 % (32.4-45.2); HEMOGLOBIN 11.9 GM/dL (10.7-15.3); MCH 28.5 pg (25.7-33.7); MCHC 31.4 g/dl (32.0-36.0); MEAN CELL VOLUME 90.8 fl (80-96); MEAN PLT VOLUME 7.3 fl (7.5-11.1); PLATELET COUNT 294 10^3/uL (134-434); RBC 4.15 M/mm3 (3.60-5.2); RDW 17.1 % (11.6-15.6); WHITE BLOOD COUNT 5.3 K/mm3 (4.0-10.0)
[2023-05-06] MEDS: NICOTINE 14 MG/24 HOURS TOPICAL PATCH TD SCH (09:46)
[2023-05-06] MEDS: risperiDONE 0.5 MG TABLET PO SCH (09:46)
[2023-05-06] MEDS: CLOPIDOGREL BISULFATE 75 MG TABLET (FP) PO SCH (09:47)
[2023-05-06] MEDS: DIGOXIN 0.125 MG TABLET PO SCH (09:47)
[2023-05-06] MEDS: metoPROLOL SUCCINATE 25 MG TAB.SR.24H (FP) PO SCH (09:47)
[2023-05-06] MEDS: MAGNESIUM OXIDE 400 MG TABLET (FP) PO SCH (09:47)
[2023-05-06] MEDS: MULTIVIT-MINERALS ORAL LIQUID PO SCH (09:49)
[2023-05-06] MEDS: methaDONE 40 MG, methaDONE 30 MG PO SCH (09:49)
[2023-05-06] MEDS: DIVALPROEX SODIUM 500 MG TABLET E.C. PO SCH ×3 (09:50→21:08)
[2023-05-06] MEDS: VALSARTAN 40 MG TABLET PO SCH (11:22)
[2023-05-06] MEDS: FUROSEMIDE 40 MG/4 ML INJECTABLE VIAL IVPUSH SCH (12:24)
[2023-05-06] MEDS: FUROSEMIDE 40 MG TABLET (FP) PO SCH (13:01)
[2023-05-06] MEDS: RIVAROXABAN 15 MG TABLET PO SCH (17:23)
[2023-05-06] MEDS ORDERED: MELATONIN 5 MG TABLETS PO ONE (19:06)
[2023-05-06] MEDS ORDERED: LIDOCAINE 5% TOPICAL PATCH TP ONE (19:07)
[2023-05-06] MEDS: ATORVASTATIN CA 40 MG TABLET (FP) PO SCH ×2 (20:43→21:09)
[2023-05-06] MEDS: MELATONIN 5 MG TABLETS PO SCH ×2 (20:43→21:09)
[2023-05-06] MEDS: ACETAMINOPHEN 325 MG TABLET (FP) PO PRN (20:43)
[2023-05-06] MEDS: LIDOCAINE PATCH REMOVAL MC SCH (21:08)
[2023-05-07] MEDS: MIRTAZAPINE 15 MG TABLET (FP) PO SCH ×2 (01:14→22:14)
[2023-05-07] MEDS: methaDONE 40 MG, methaDONE 30 MG PO SCH (09:37)
[2023-05-07] MEDS: CLOPIDOGREL BISULFATE 75 MG TABLET (FP) PO SCH (09:38)
[2023-05-07] MEDS: DIGOXIN 0.125 MG TABLET PO SCH (09:38)
[2023-05-07] MEDS: FUROSEMIDE 40 MG TABLET (FP) PO SCH (09:38)
[2023-05-07] MEDS: MAGNESIUM OXIDE 400 MG TABLET (FP) PO SCH ×3 (09:39→22:43)
[2023-05-07] MEDS: NICOTINE 14 MG/24 HOURS TOPICAL PATCH TD SCH (09:39)
[2023-05-07] MEDS: risperiDONE 0.5 MG TABLET PO SCH (09:39)
[2023-05-07] MEDS: metoPROLOL SUCCINATE 25 MG TAB.SR.24H (FP) PO SCH (09:39)
[2023-05-07 09:41] LABS: POTASSIUM 3.8 mmol/L (3.5-5.1)
[2023-05-07] MEDS: DIVALPROEX SODIUM 500 MG TABLET E.C. PO SCH ×2 (09:41→22:14)
[2023-05-07 09:43] LABS: BLOOD UREA NITROGEN 10.1 mg/dL (7-18); MAGNESIUM 1.7 mg/dL (1.8-2.4)
[2023-05-07 09:44] LABS: CALCIUM 9.4 mg/dL (8.5-10.1)
[2023-05-07 09:46] LABS: CREATININE 0.9 mg/dL (0.55-1.3); PHOSPHOROUS 3.3 mg/dL (2.5-4.9)
[2023-05-07] MEDS: MULTIVIT-MINERALS ORAL LIQUID PO SCH (09:46)
[2023-05-07] MEDS ORDERED: VALSARTAN 40 MG TABLET PO SCH (10:00)
[2023-05-07] MEDS ORDERED: FUROSEMIDE 40 MG TABLET (FP) PO SCH (10:00)
[2023-05-07 12:28] LABS: HEMATOCRIT 43.6 % (32.4-45.2); HEMOGLOBIN 13.7 GM/dL (10.7-15.3); MCH 28.5 pg (25.7-33.7); MCHC 31.5 g/dl (32.0-36.0); MEAN CELL VOLUME 90.7 fl (80-96); MEAN PLT VOLUME 8.2 fl (7.5-11.1); PLATELET COUNT 414 10^3/uL (134-434); RBC 4.81 M/mm3 (3.60-5.2); RDW 16.9 % (11.6-15.6); WHITE BLOOD COUNT 8.3 K/mm3 (4.0-10.0)
[2023-05-07] MEDS ORDERED: MAGNESIUM SULF 50% (8.12 MEQ/2 ML-1 GM VIAL) IVPB ONE (15:30)
[2023-05-07] MEDS: RIVAROXABAN 15 MG TABLET PO SCH (17:51)
[2023-05-07] MEDS: MELATONIN 5 MG TABLETS PO SCH (22:14)
[2023-05-07] MEDS: ATORVASTATIN CA 40 MG TABLET (FP) PO SCH (22:15)
[2023-05-07] MEDS: LIDOCAINE PATCH REMOVAL MC SCH (22:15)
[2023-05-08] MEDS ORDERED: FUROSEMIDE 40 MG TABLET (FP) PO ONE (04:01)
[2023-05-08] MEDS: methaDONE 40 MG, methaDONE 30 MG PO SCH ×2 (05:43→13:38)
[2023-05-08] MEDS ORDERED: methaDONE HCL 10 MG TABLET PO SCH (06:00)
[2023-05-08] MEDS ORDERED: FUROSEMIDE 40 MG/4 ML INJECTABLE VIAL IVPUSH SCH ×2 (06:00)
[2023-05-08 07:59] LABS: HEMATOCRIT 37.8 % (32.4-45.2); HEMOGLOBIN 11.9 GM/dL (10.7-15.3); MCH 28.4 pg (25.7-33.7); MCHC 31.5 g/dl (32.0-36.0); MEAN CELL VOLUME 90.1 fl (80-96); MEAN PLT VOLUME 8.1 fl (7.5-11.1); PLATELET COUNT 353 10^3/uL (134-434); RBC 4.19 M/mm3 (3.60-5.2); RDW 16.5 % (11.6-15.6)
[2023-05-08 08:10] LABS: CHLORIDE 109 mmol/L (98-107); POTASSIUM 3.8 mmol/L (3.5-5.1); SODIUM 148 mmol/L (136-145)
[2023-05-08 08:17] LABS: CALCIUM 8.6 mg/dL (8.5-10.1)
[2023-05-08 08:18] LABS: ALBUMIN 2.6 g/dl (3.4-5.0); ANION GAP 10 MMOL/L (8-16); CO2 29 mmol/L (21-32); MAGNESIUM 1.5 mg/dL (1.8-2.4)
[2023-05-08 08:21] LABS: CREATININE 0.8 mg/dL (0.55-1.3); PHOSPHOROUS 3.6 mg/dL (2.5-4.9); SGOT/AST 37 U/L (15-37); SGPT/ALT 26 U/L (13-61)
[2023-05-08 08:22] LABS: BILIRUBIN,TOTAL 0.5 mg/dL (0.2-1); TOT PROT 5.9 g/dl (6.4-8.2)
[2023-05-08 08:24] LABS: ALK PHOS 105 U/L (45-117)
[2023-05-08 08:26] LABS: GLUCOSE,RANDOM 49 mg/dL (74-106)
[2023-05-08] MEDS ORDERED: DEXTROSE 50%-WATER 25 GM/50 ML DISP.SYRIN IVPUSH ONE (08:53)
[2023-05-08] MEDS: MAGNESIUM OXIDE 400 MG TABLET (FP) PO SCH ×2 (11:00→22:02)
[2023-05-08] MEDS: DIGOXIN 0.125 MG TABLET PO SCH (11:00)
[2023-05-08] MEDS: metoPROLOL SUCCINATE 25 MG TAB.SR.24H (FP) PO SCH (11:01)
[2023-05-08] MEDS: CLOPIDOGREL BISULFATE 75 MG TABLET (FP) PO SCH (11:01)
[2023-05-08] MEDS: risperiDONE 0.5 MG TABLET PO SCH (11:01)
[2023-05-08] MEDS: ACETAMINOPHEN 325 MG TABLET (FP) PO PRN (11:02)
[2023-05-08] MEDS: NICOTINE 14 MG/24 HOURS TOPICAL PATCH TD SCH (11:06)
[2023-05-08] MEDS: MULTIVIT-MINERALS ORAL LIQUID PO SCH (11:06)
[2023-05-08] MEDS: DIVALPROEX SODIUM 500 MG TABLET E.C. PO SCH ×2 (11:06→22:02)
[2023-05-08] MEDS: LIDOCAINE 5% TOPICAL PATCH TP SCH (11:47)
[2023-05-08] MEDS ORDERED: FUROSEMIDE 40 MG TABLET (FP) PO SCH (13:45)
[2023-05-08] MEDS: RIVAROXABAN 15 MG TABLET PO SCH (17:17)
[2023-05-08] MEDS ORDERED: ATORVASTATIN CA 20 MG TABLET (FP) ONE (21:48)
[2023-05-08] MEDS: LIDOCAINE PATCH REMOVAL MC SCH (22:02)
[2023-05-08] MEDS: MELATONIN 5 MG TABLETS PO SCH (22:02)
[2023-05-08] MEDS: ATORVASTATIN CA 40 MG TABLET (FP) PO SCH (22:02)
[2023-05-08] MEDS: MIRTAZAPINE 15 MG TABLET (FP) PO SCH (22:22)
[2023-05-09] MEDS ORDERED: methaDONE 40 MG, methaDONE 10 MG PO SCH (06:00)
[2023-05-09 08:13] LABS: BLOOD UREA NITROGEN 11.4 mg/dL (7-18); MAGNESIUM 1.9 mg/dL (1.8-2.4)
[2023-05-09 08:16] LABS: PHOSPHOROUS 3.4 mg/dL (2.5-4.9)
[2023-05-09 08:18] LABS: BILIRUBIN,TOTAL 0.4 mg/dL (0.2-1); TOT PROT 6.7 g/dl (6.4-8.2)
[2023-05-09 08:36] LABS: HEMATOCRIT 40.4 % (32.4-45.2); HEMOGLOBIN 12.7 GM/dL (10.7-15.3); MCH 28.3 pg (25.7-33.7); MCHC 31.6 g/dl (32.0-36.0); MEAN CELL VOLUME 89.5 fl (80-96); MEAN PLT VOLUME 8.1 fl (7.5-11.1); PLATELET COUNT 305 10^3/uL (134-434); RBC 4.51 M/mm3 (3.60-5.2); RDW 17.5 % (11.6-15.6); WHITE BLOOD COUNT 7.3 K/mm3 (4.0-10.0)
[2023-05-09] MEDS ORDERED: ACETAMINOPHEN 325 MG TABLET (FP) PO ONE (09:56)
[2023-05-09] MEDS: risperiDONE 0.5 MG TABLET PO SCH (10:39)
[2023-05-09] MEDS: DIGOXIN 0.125 MG TABLET PO SCH (10:39)
[2023-05-09] MEDS: CLOPIDOGREL BISULFATE 75 MG TABLET (FP) PO SCH (10:40)
[2023-05-09] MEDS: metoPROLOL SUCCINATE 25 MG TAB.SR.24H (FP) PO SCH (10:41)
[2023-05-09] MEDS: LIDOCAINE 5% TOPICAL PATCH TP SCH (10:41)
[2023-05-09] MEDS: NICOTINE 14 MG/24 HOURS TOPICAL PATCH TD SCH (10:41)
[2023-05-09] MEDS: DIVALPROEX SODIUM 500 MG TABLET E.C. PO SCH ×2 (10:41→21:48)
[2023-05-09] MEDS: MULTIVIT-MINERALS ORAL LIQUID PO SCH (10:47)
[2023-05-09] MEDS: ALBUTEROL SO4 2.5/IPRATROPIUM 0.5 INH SOL 3 ML VIAL.NEB. NEB SCH ×2 (13:32→20:05)
[2023-05-09] MEDS: FUROSEMIDE 40 MG/4 ML INJECTABLE VIAL IVPUSH SCH (14:34)
[2023-05-09] MEDS: RIVAROXABAN 15 MG TABLET PO SCH (18:15)
[2023-05-09] MEDS ORDERED: DEXTROSE 50%-WATER - 25 GM/50 ML VIAL IVPUSH PRN (20:24)
[2023-05-09] MEDS: KETOROLAC TROMETHAMINE 15 MG/ML VIAL IVPUSH ONE ×2 (21:04→21:13)
[2023-05-09] MEDS ORDERED: IBUPROFEN 400 MG TABLET (FP) PO ONE (21:31)
[2023-05-09] MEDS: MELATONIN 5 MG TABLETS PO SCH (21:48)
[2023-05-09] MEDS: ATORVASTATIN CA 40 MG TABLET (FP) PO SCH (21:48)
[2023-05-09] MEDS: LIDOCAINE PATCH REMOVAL MC SCH (21:55)
[2023-05-10] MEDS: FUROSEMIDE 40 MG/4 ML INJECTABLE VIAL IVPUSH SCH ×2 (06:25→13:55)
[2023-05-10] MEDS: methaDONE HCL 40 MG DISPERSABLE TABLET PO SCH (06:25)
[2023-05-10] MEDS: ALBUTEROL SO4 2.5/IPRATROPIUM 0.5 INH SOL 3 ML VIAL.NEB. NEB SCH ×3 (08:08→20:25)
[2023-05-10 08:48] LABS: HEMATOCRIT 37.9 % (32.4-45.2); HEMOGLOBIN 12.3 GM/dL (10.7-15.3); MCH 28.4 pg (25.7-33.7); MCHC 32.4 g/dl (32.0-36.0); MEAN CELL VOLUME 87.7 fl (80-96); MEAN PLT VOLUME 7.8 fl (7.5-11.1); PLATELET COUNT 292 10^3/uL (134-434); RBC 4.32 M/mm3 (3.60-5.2); RDW 16.8 % (11.6-15.6); WHITE BLOOD COUNT 5.6 K/mm3 (4.0-10.0)
[2023-05-10 08:55] LABS: POTASSIUM 3.5 mmol/L (3.5-5.1)
[2023-05-10 09:06] LABS: CALCIUM 8.7 mg/dL (8.5-10.1)
[2023-05-10 09:07] LABS: ALBUMIN 2.9 g/dl (3.4-5.0); BLOOD UREA NITROGEN 9.9 mg/dL (7-18); MAGNESIUM 1.9 mg/dL (1.8-2.4)
[2023-05-10 09:10] LABS: PHOSPHOROUS 3.6 mg/dL (2.5-4.9)
[2023-05-10 09:11] LABS: BILIRUBIN,TOTAL 0.3 mg/dL (0.2-1); TOT PROT 6.5 g/dl (6.4-8.2)
[2023-05-10] MEDS: LIDOCAINE 5% TOPICAL PATCH TP SCH (10:58)
[2023-05-10] MEDS: metoPROLOL SUCCINATE 25 MG TAB.SR.24H (FP) PO SCH (10:59)
[2023-05-10] MEDS: risperiDONE 0.5 MG TABLET PO SCH (10:59)
[2023-05-10] MEDS: DIGOXIN 0.125 MG TABLET PO SCH (10:59)
[2023-05-10] MEDS: NICOTINE 14 MG/24 HOURS TOPICAL PATCH TD SCH (10:59)
[2023-05-10] MEDS: CLOPIDOGREL BISULFATE 75 MG TABLET (FP) PO SCH (10:59)
[2023-05-10] MEDS: MULTIVIT-MINERALS ORAL LIQUID PO SCH ×2 (11:00→11:07)
[2023-05-10] MEDS: DIVALPROEX SODIUM 500 MG TABLET E.C. PO SCH (11:00)
[2023-05-10 11:43] VITALS: RESP 18
[2023-05-10] MEDS ORDERED: metoPROLOL SUCCINATE 25 MG TAB.SR.24H (FP) PO ONE ×3 (13:46→22:00)
[2023-05-10] MEDS ORDERED: metoPROLOL SUCCINATE 25 MG TAB.SR.24H (FP) PO SCH (13:46)
[2023-05-10] MEDS: RIVAROXABAN 15 MG TABLET PO SCH (17:10)
[2023-05-10] MEDS: MELATONIN 5 MG TABLETS PO SCH (21:47)
[2023-05-10] MEDS: ATORVASTATIN CA 40 MG TABLET (FP) PO SCH (21:48)
[2023-05-10] MEDS: LIDOCAINE PATCH REMOVAL MC SCH (21:50)
[2023-05-10] MEDS: DIVALPROEX SODIUM 250 MG TABLET E.C. PO SCH (21:53)
[2023-05-10] MEDS ORDERED: DEXTROSE 50%-WATER 25 GM/50 ML DISP.SYRIN IVPUSH PRN (23:52)
[2023-05-11] MEDS: FUROSEMIDE 40 MG/4 ML INJECTABLE VIAL IVPUSH SCH ×2 (05:21→13:47)
[2023-05-11] MEDS: methaDONE HCL 40 MG DISPERSABLE TABLET PO SCH (05:21)
[2023-05-11] MEDS: ALBUTEROL SO4 2.5/IPRATROPIUM 0.5 INH SOL 3 ML VIAL.NEB. NEB SCH ×2 (08:41→14:34)
[2023-05-11 09:19] LABS: POTASSIUM 3.7 mmol/L (3.5-5.1)
[2023-05-11 09:25] LABS: HEMATOCRIT 39.8 % (32.4-45.2); HEMOGLOBIN 12.4 GM/dL (10.7-15.3); MCH 28.2 pg (25.7-33.7); MCHC 31.3 g/dl (32.0-36.0); MEAN CELL VOLUME 90.3 fl (80-96); MEAN PLT VOLUME 8.7 fl (7.5-11.1); PLATELET COUNT 306 10^3/uL (134-434); RBC 4.41 M/mm3 (3.60-5.2); RDW 16.7 % (11.6-15.6); WHITE BLOOD COUNT 6.8 K/mm3 (4.0-10.0)
[2023-05-11 09:41] LABS: ALBUMIN 2.9 g/dl (3.4-5.0); BLOOD UREA NITROGEN 9.5 mg/dL (7-18)
[2023-05-11 09:44] LABS: CREATININE 0.8 mg/dL (0.55-1.3); PHOSPHOROUS 3.9 mg/dL (2.5-4.9)
[2023-05-11 09:46] LABS: BILIRUBIN,TOTAL 0.3 mg/dL (0.2-1); TOT PROT 6.8 g/dl (6.4-8.2)
[2023-05-11 09:52] LABS: MAGNESIUM 1.6 mg/dL (1.8-2.4)
[2023-05-11] MEDS ORDERED: metoPROLOL SUCCINATE 25 MG TAB.SR.24H (FP) PO SCH (10:00)
[2023-05-11 10:56] VITALS: BP 92/53; TEMP 99
[2023-05-11] MEDS: ACETAMINOPHEN 325 MG TABLET (FP) PO PRN (10:59)
[2023-05-11] MEDS: DIGOXIN 0.125 MG TABLET PO SCH (11:01)
[2023-05-11] MEDS: CLOPIDOGREL BISULFATE 75 MG TABLET (FP) PO SCH (11:01)
[2023-05-11] MEDS: NICOTINE 14 MG/24 HOURS TOPICAL PATCH TD SCH (11:02)
[2023-05-11 11:03] VITALS: PULSE 76
[2023-05-11] MEDS: risperiDONE 0.5 MG TABLET PO SCH (11:03)
[2023-05-11] MEDS: DIVALPROEX SODIUM 250 MG TABLET E.C. PO SCH (11:03)
[2023-05-11] MEDS: MULTIVIT-MINERALS ORAL LIQUID PO SCH (11:03)
[2023-05-11] MEDS: LIDOCAINE 5% TOPICAL PATCH TP SCH (11:03)
== END 2023-05-11 14:38 | disposition home or self-care (01) | DRG 194 ==
LOC: JER 18:54 → JERBED 22:57 → J4W 05-03 04:26
PROVIDERS: ADMIT Internal Medicine; ATTEND Internal Medicine
DX: I11.0 Hypertensive heart disease with heart failure (principal); I50.23 Acute on chronic systolic (congestive) heart failure; J45.909 Unspecified asthma, uncomplicated; F31.9 Bipolar disorder, unspecified; I25.2 Old myocardial infarction; F43.10 Post-traumatic stress disorder, unspecified; F41.9 Anxiety disorder, unspecified; F17.210 Nicotine dependence, cigarettes, uncomplicated; J18.9 Pneumonia, unspecified organism; I24.8 Other forms of acute ischemic heart disease; I48.0 Paroxysmal atrial fibrillation; F11.23 Opioid dependence with withdrawal; I25.10 Atherosclerotic heart disease of native coronary artery without angina pectoris; G40.909 Epilepsy, unspecified, not intractable, without status epilepticus; K80.20 Calculus of gallbladder without cholecystitis without obstruction; G47.00 Insomnia, unspecified; E43 Unspecified severe protein-calorie malnutrition; Z68.25 Body mass index [BMI] 25.0-25.9, adult
CPT/HCPCS: 0241U-QW; 36415; 71045-TC-FY; 71250-TC; 76705-TC; 80048; 80053; 80061; 80162; 80307; 82962; 83605; 83735; 83880; 84100; 84443; 84484; 85025; 85027; 85610; 85730; 86705; 86803; 87040; 87340; 87517; 93005; 93010; 93306-TC; 94010; 94640; 94761; 97116-GP; 97162-GP; 99285-25

== ENCOUNTER 2023-05-29 06:11 | Inpatient (IN) | payer OTHER ==
[2023-05-29] MEDS ORDERED: ALBUTEROL SO4 2.5/IPRATROPIUM 0.5 INH SOL 3 ML VIAL.NEB. NEB ONE ×2 (07:25→08:03)
[2023-05-29 08:20] LABS: BASO % 1.4 % (0-2.0); EOS % 0.3 % (0-4.5); HEMATOCRIT 34.9 % (32.4-45.2); HEMOGLOBIN 11.6 GM/dL (10.7-15.3); LYMPH % 19.1 % (8-40); MCH 28.8 pg (25.7-33.7); MCHC 33.3 g/dl (32.0-36.0); MEAN CELL VOLUME 86.5 fl (80-96); MEAN PLT VOLUME 8.3 fl (7.5-11.1); MONO % 8.3 % (3.8-10.2); NEUT % 70.9 % (42.8-82.8); PLATELET COUNT 383 10^3/uL (134-434); RBC 4.03 M/mm3 (3.60-5.2); RDW 16.9 % (11.6-15.6); WHITE BLOOD COUNT 9.5 K/mm3 (4.0-10.0)
[2023-05-29 08:27] LABS: ACTIVATED PTT 38.8 SECONDS (25.2-36.5)
[2023-05-29 08:35] LABS: POTASSIUM 4.2 mmol/L (3.5-5.1)
[2023-05-29 08:37] LABS: ALBUMIN 3.2 g/dl (3.4-5.0); CALCIUM 8.8 mg/dL (8.5-10.1)
[2023-05-29 08:38] LABS: BLOOD UREA NITROGEN 17.8 mg/dL (7-18); MAGNESIUM 1.6 mg/dL (1.8-2.4)
[2023-05-29 08:39] LABS: INR 9.05 (0.83-1.09)
[2023-05-29 08:40] LABS: CREATININE 1.3 mg/dL (0.55-1.3)
[2023-05-29 08:42] LABS: BILIRUBIN,TOTAL 0.9 mg/dL (0.2-1); TOT PROT 6.4 g/dl (6.4-8.2)
[2023-05-29 08:46] LABS: N-TERMINAL BNP 14337.9 pg/ml (5-125)
[2023-05-29] MEDS ORDERED: MAGNESIUM SULF 50% (8.12 MEQ/2 ML-1 GM VIAL) IVPB ONE (08:46)
[2023-05-29] MEDS ORDERED: FUROSEMIDE 40 MG/4 ML INJECTABLE VIAL IVPUSH ONE ×2 (08:47→08:50)
[2023-05-29] MEDS ORDERED: MAGNESIUM SULFATE IN WATER 2 GM/50 ML IVPB IVPB ONE (09:37)
[2023-05-29] MEDS ORDERED: FUROSEMIDE 40 MG/4 ML INJECTABLE VIAL ONE (09:37)
[2023-05-29] MEDS ORDERED: methaDONE HCL 10 MG TABLET (FOR DETOX USE ONLY) PO ONE (10:47)
[2023-05-29] MEDS ORDERED: methaDONE HCL 40 MG DISPERSABLE TABLET ONE (10:52)
[2023-05-29] MEDS ORDERED: methaDONE HCL 10 MG TABLET ONE (10:52)
[2023-05-29 11:11] LABS: PROTHROMBIN TIME (PATIENT) 96.8 SEC (9.7-13.0)
[2023-05-29] MEDS ORDERED: methaDONE 40 MG, methaDONE 10 MG PO ONE (11:15)
[2023-05-29 11:51] LABS: INR 8.52 (0.83-1.09)
[2023-05-29 15:26] VITALS: BMI 23.8
[2023-05-29 17:04] LABS: PROTHROMBIN TIME (PATIENT) 86.6 SEC (9.7-13.0)
[2023-05-29 17:43] LABS: INR 7.62 (0.83-1.09)
[2023-05-29] MEDS ORDERED: LIDOCAINE 5% TOPICAL PATCH TP ONE (20:09)
[2023-05-29] MEDS: ALBUTEROL SO4 2.5/IPRATROPIUM 0.5 INH SOL 3 ML VIAL.NEB. NEB SCH (20:21)
[2023-05-29] MEDS: MELATONIN 5 MG TABLETS PO SCH (21:05)
[2023-05-29] MEDS: risperiDONE 0.5 MG TABLET PO SCH (21:05)
[2023-05-29] MEDS ORDERED: levETIRAcetam 500 MG/5 ML INJECTION VIAL IVPB ONE (21:26)
[2023-05-29 23:40] LABS: POTASSIUM 4.1 mmol/L (3.5-5.1)
[2023-05-29 23:42] LABS: BLOOD UREA NITROGEN 18.6 mg/dL (7-18)
[2023-05-29 23:45] LABS: CREATININE 1.4 mg/dL (0.55-1.3)
[2023-05-30] MEDS ORDERED: methaDONE HCL 40 MG DISPERSABLE TABLET PO SCH (06:00)
[2023-05-30] MEDS: FUROSEMIDE 40 MG/4 ML INJECTABLE VIAL IVPUSH SCH ×2 (07:07→14:05)
[2023-05-30] MEDS: ALBUTEROL SO4 2.5/IPRATROPIUM 0.5 INH SOL 3 ML VIAL.NEB. NEB SCH ×3 (07:55→20:25)
[2023-05-30 09:06] LABS: BASO % 1.4 % (0-2.0); EOS % 0.3 % (0-4.5); HEMATOCRIT 35.2 % (32.4-45.2); HEMOGLOBIN 11.2 GM/dL (10.7-15.3); LYMPH % 27.9 % (8-40); MCH 28.2 pg (25.7-33.7); MCHC 31.8 g/dl (32.0-36.0); MEAN CELL VOLUME 88.7 fl (80-96); MEAN PLT VOLUME 8.5 fl (7.5-11.1); MONO % 11.4 % (3.8-10.2); PLATELET COUNT 337 10^3/uL (134-434); RBC 3.97 M/mm3 (3.60-5.2); RDW 16.8 % (11.6-15.6); WHITE BLOOD COUNT 9.2 K/mm3 (4.0-10.0)
[2023-05-30] MEDS: levETIRAcetam 500 MG TABLET (FP) PO SCH ×2 (09:06→21:38)
[2023-05-30 09:46] LABS: INR 4.73 (0.83-1.09)
[2023-05-30] MEDS ORDERED: DIGOXIN 0.125 MG TABLET PO SCH (10:00)
[2023-05-30] MEDS ORDERED: LIDOCAINE PATCH REMOVAL MC ONE (10:00)
[2023-05-30 10:02] LABS: BLOOD UREA NITROGEN 19.2 mg/dL (7-18); CALCIUM 8.4 mg/dL (8.5-10.1); MAGNESIUM 1.8 mg/dL (1.8-2.4)
[2023-05-30 10:05] LABS: BILIRUBIN,TOTAL 0.9 mg/dL (0.2-1); CREATININE 1.2 mg/dL (0.55-1.3)
[2023-05-30] MEDS ORDERED: methaDONE 40 MG, methaDONE 10 MG PO SCH (13:00)
[2023-05-30] MEDS ORDERED: FUROSEMIDE 40 MG/4 ML INJECTABLE VIAL IVPUSH SCH (14:09)
[2023-05-30] MEDS ORDERED: RAPID SEQUENCE INTUBATION KIT NR ONE (15:52)
[2023-05-30] MEDS ORDERED: AMIODARONE HCL INJECTION 150 MG in DEXTROSE 5%-WATER - 100 ML IVPB ONE ×2 (15:53→23:43)
[2023-05-30] MEDS ORDERED: AMIODARONE IN DEXTROSE,ISO-OSM 360 MG/200 ML BAG ONE (15:57)
[2023-05-30 16:36] LABS: EPI CELLS 18 /uL (0-25.1); HYALINE CASTS 1 /uL (0-3.1); URINE APPEARANCE CLEAR; URINE BACTERIA 116 /uL (0-1359); URINE BILIRUBIN NEGATIVE (NEGATIVE); URINE COLOR YELLOW; URINE GLUCOSE (UA) NEGATIVE (NEGATIVE); URINE KETONE NEGATIVE (NEGATIVE); URINE LEUK ESTERASE TRACE (NEGATIVE); URINE NITRITE NEGATIVE (NEGATIVE); URINE PROTEIN NEGATIVE (NEGATIVE); URINE RBC 13 /uL (0-23.9); URINE UROBILINOGEN 0.2 mg/dL (0.2-1.0); URINE WBC 13 /uL (0-25.8)
[2023-05-30] MEDS ORDERED: AMIODARONE IN DEXTROSE,ISO-OSM 360 MG/200 ML BAG IV SCH ×2 (17:00→23:00)
[2023-05-30] MEDS ORDERED: AMIODARONE IN DEXTROSE,ISO-OSM 150 MG/100 ML BAG IVPB ONE (17:00)
[2023-05-30 19:28] LABS: HEMATOCRIT 36.8 % (32.4-45.2); HEMOGLOBIN 11.6 GM/dL (10.7-15.3); MCH 28.4 pg (25.7-33.7); MCHC 31.6 g/dl (32.0-36.0); MEAN CELL VOLUME 89.9 fl (80-96); MEAN PLT VOLUME 8.6 fl (7.5-11.1); PLATELET COUNT 353 10^3/uL (134-434); RBC 4.09 M/mm3 (3.60-5.2); RDW 16.7 % (11.6-15.6); WHITE BLOOD COUNT 10.4 K/mm3 (4.0-10.0)
[2023-05-30 19:36] LABS: PROTHROMBIN TIME (PATIENT) 47.4 SEC (9.7-13.0)
[2023-05-30 19:38] LABS: ACTIVATED PTT 32.2 SECONDS (25.2-36.5)
[2023-05-30 19:42] LABS: POTASSIUM 4.1 mmol/L (3.5-5.1)
[2023-05-30 19:44] LABS: CALCIUM 8.8 mg/dL (8.5-10.1)
[2023-05-30 19:45] LABS: ALBUMIN 3.1 g/dl (3.4-5.0); BLOOD UREA NITROGEN 21.9 mg/dL (7-18); MAGNESIUM 1.9 mg/dL (1.8-2.4)
[2023-05-30 19:48] LABS: CREATININE 1.6 mg/dL (0.55-1.3); INR 4.14 (0.83-1.09); PHOSPHOROUS 4.4 mg/dL (2.5-4.9)
[2023-05-30 19:49] LABS: BILIRUBIN,TOTAL 1.3 mg/dL (0.2-1); TOT PROT 6.2 g/dl (6.4-8.2)
[2023-05-30] MEDS: CHLORHEXIDINE GLUCONATE 4% CLEANSER FOR DECOLONIZATION TP SCH (21:38)
[2023-05-30] MEDS: MELATONIN 5 MG TABLETS PO SCH (21:38)
[2023-05-30] MEDS: risperiDONE 0.5 MG TABLET PO SCH (21:38)
[2023-05-30] MEDS ORDERED: DEXTROSE 50%-WATER 25 GM/50 ML DISP.SYRIN ONE (21:54)
[2023-05-30] MEDS ORDERED: CARVEDILOL 3.125 MG TABLET (FP) PO SCH (22:00)
[2023-05-30] MEDS ORDERED: DEXTROSE 50%-WATER - 25 GM/50 ML VIAL IVPUSH ONE (22:10)
[2023-05-30] MEDS: MUPIROCIN 2% TOPICAL OINTMENT FOR DECOLONIZATION NS SCH (22:53)
[2023-05-31] MEDS ORDERED: HYDROmorphone HCl 2 MG/ML VIAL IVPUSH STA (01:37)
[2023-05-31 02:55] LABS: ALLENS TEST POSITIVE; ARTERIAL BLD GAS O2 SATURATION 85.1 % (95-98); ARTERIAL BLOOD GAS BASE EXCESS -11.9 mmol/L (-2-2); ARTERIAL BLOOD GAS PO2 58.2 mmHg (80-100); ARTERIAL BLOOD GAS pH 7.222 (7.350-7.450)
[2023-05-31] MEDS ORDERED: DOPAMINE 400 MG/D5W - 400,000 MCG/250 ML INFUS.BAG IVPB ONE (03:08)
[2023-05-31] MEDS ORDERED: RAPID SEQUENCE INTUBATION KIT NR ONE (03:13)
[2023-05-31] MEDS ORDERED: DOPAMINE 400 MG/D5W - 400,000 MCG/250 ML INFUS.BAG IVPB SCH (04:45)
[2023-05-31] MEDS ORDERED: FENTANYL NS IVPB 500 MCG/100 ML BAG IVPB SCH (04:45)
[2023-05-31] MEDS ORDERED: methaDONE 40 MG, methaDONE 10 MG PO SCH (06:00)
[2023-05-31 06:32] LABS: ARTERIAL BLD GAS O2 SATURATION 92.9 % (95-98); ARTERIAL BLOOD GAS BASE EXCESS -5.4 mmol/L (-2-2); ARTERIAL BLOOD GAS PO2 65.5 mmHg (80-100); ARTERIAL BLOOD GAS pH 7.382 (7.350-7.450)
[2023-05-31 06:34] LABS: VENT MODE A/C; VENT RATE 14
[2023-05-31] MEDS: FUROSEMIDE 40 MG/4 ML INJECTABLE VIAL IVPUSH SCH ×2 (06:45→14:27)
[2023-05-31 07:09] LABS: HEMATOCRIT 35.3 % (32.4-45.2); HEMOGLOBIN 11.1 GM/dL (10.7-15.3); MCH 28.4 pg (25.7-33.7); MCHC 31.3 g/dl (32.0-36.0); MEAN CELL VOLUME 90.7 fl (80-96); MEAN PLT VOLUME 9.2 fl (7.5-11.1); PLATELET COUNT 276 10^3/uL (134-434); RBC 3.89 M/mm3 (3.60-5.2); RDW 16.8 % (11.6-15.6); WHITE BLOOD COUNT 16.6 K/mm3 (4.0-10.0)
[2023-05-31 07:21] LABS: PROTHROMBIN TIME (PATIENT) 67.5 SEC (9.7-13.0)
[2023-05-31 07:23] LABS: ACTIVATED PTT 34.1 SECONDS (25.2-36.5)
[2023-05-31 07:28] LABS: POTASSIUM 4.7 mmol/L (3.5-5.1)
[2023-05-31 07:32] LABS: BILIRUBIN,DIRECT 1.2 mg/dL (0.0-0.2); BLOOD UREA NITROGEN 27.5 mg/dL (7-18)
[2023-05-31 07:34] LABS: BILIRUBIN,TOTAL 2.3 mg/dL (0.2-1); TOT PROT 6.2 g/dl (6.4-8.2)
[2023-05-31 07:46] LABS: INR 5.92 (0.83-1.09)
[2023-05-31] MEDS: ALBUTEROL SO4 2.5/IPRATROPIUM 0.5 INH SOL 3 ML VIAL.NEB. NEB SCH ×3 (08:25→20:02)
[2023-05-31] MEDS: CARVEDILOL 3.125 MG TABLET (FP) PO SCH ×2 (09:56→21:09)
[2023-05-31] MEDS: levETIRAcetam 500 MG TABLET (FP) PO SCH ×2 (09:56→21:09)
[2023-05-31] MEDS ORDERED: LIDOCAINE 5% TOPICAL PATCH TP SCH (10:00)
[2023-05-31] MEDS ORDERED: DIGOXIN 0.125 MG TABLET PO SCH (10:00)
[2023-05-31] MEDS ORDERED: CLOPIDOGREL BISULFATE 75 MG TABLET (FP) PO SCH (10:00)
[2023-05-31 10:02] LABS: LACTIC ACID 14.7 mmol/L (0.4-2.0)
[2023-05-31] MEDS: MUPIROCIN 2% TOPICAL OINTMENT FOR DECOLONIZATION NS SCH ×2 (10:02→21:09)
[2023-05-31 11:50] LABS: ARTERIAL BLD GAS O2 SATURATION 94.7 % (95-98); ARTERIAL BLOOD GAS BASE EXCESS -5.3 mmol/L (-2-2); ARTERIAL BLOOD GAS pH 7.426 (7.350-7.450)
[2023-05-31 11:52] LABS: VENT MODE A/C; VENT RATE 14
[2023-05-31] MEDS ORDERED: PANTOPRAZOLE SODIUM 40 MG VIAL IVPUSH SCH (13:45)
[2023-05-31] MEDS ORDERED: NOREPINEPHRINE BITARTRATE 4,000 MCG in DEXTROSE 5%-WATER - 496 ML IV SCH (13:45)
[2023-05-31] MEDS ORDERED: PHYTONADIONE 10 MG/1 ML AMP IVPB ONE (14:00)
[2023-05-31] MEDS ORDERED: FUROSEMIDE 40 MG/4 ML INJECTABLE VIAL IVPUSH SCH (14:15)
[2023-05-31] MEDS ORDERED: CEFEPIME HCL 1 GM VIAL (RESTRICTED TO ID) IVPB SCH (16:00)
[2023-05-31] MEDS ORDERED: CEFEPIME 1 GM in DEXTROSE 5%-WATER 100 ML IVPB SCH (16:15)
[2023-05-31] MEDS ORDERED: VANCOMYCIN/WATER FOR INJ (PEG) 1,000 MG/200 ML BAG IVPB ONE (16:15)
[2023-05-31 20:02] VITALS: TEMP 97.1
[2023-05-31 20:40] LABS: COCAINE, UR NEGATIVE (NEGATIVE); PHENCYCLIDINE,URINE NEGATIVE (NEGATIVE); URINE AMPHETAMINES NEGATIVE (NEGATIVE); URINE BARBITURATES NEGATIVE (NEGATIVE)
[2023-05-31 20:41] LABS: URINE BENZODIAZEPINES NEGATIVE (NEGATIVE)
[2023-05-31 20:45] LABS: METHADONE, UR POSITIVE (NEGATIVE); OPIATES, URI POSITIVE (NEGATIVE)
[2023-05-31] MEDS: CHLORHEXIDINE GLUCONATE 4% CLEANSER FOR DECOLONIZATION TP SCH (21:09)
[2023-05-31 21:54] VITALS: RESP 22
[2023-05-31] MEDS ORDERED: risperiDONE 0.5 MG TABLET PO SCH (22:00)
[2023-05-31] MEDS ORDERED: MELATONIN 5 MG TABLETS PO SCH (22:00)
[2023-05-31] MEDS ORDERED: LIDOCAINE PATCH REMOVAL MC SCH (22:00)
[2023-05-31 22:18] VITALS: BP 96/85; PULSE 71
[2023-06-01 16:09] LABS: FACTOR VII ACTIVITY 22 % (51-186)
== END 2023-06-01 00:24 | disposition short-term general hospital (02) | DRG 182 ==
LOC: JER 06:11 → JERBED 10:34 → J4W 11:58 → JICU 05-30 16:46
PROVIDERS: ADMIT Family Medicine; ATTEND Internal Medicine
PROC: 03HY32Z Insertion of Monitoring Device into Upper Artery, Percutaneous Approach (ICD-10-PCS; principal; 2023-05-31)
PROC: 5A1945Z Respiratory Ventilation, 24-96 Consecutive Hours (ICD-10-PCS; 2023-05-31)
PROC: 0BH17EZ Insertion of Endotracheal Airway into Trachea, Via Natural or Artificial Opening (ICD-10-PCS; 2023-05-31)
PROC: 05HY33Z Insertion of Infusion Device into Upper Vein, Percutaneous Approach (ICD-10-PCS; 2023-05-31)
PROC: 30233L1 Transfusion of Nonautologous Fresh Plasma into Peripheral Vein, Percutaneous Approach (ICD-10-PCS; 2023-05-31)
PROC: 30233K1 Transfusion of Nonautologous Frozen Plasma into Peripheral Vein, Percutaneous Approach (ICD-10-PCS; 2023-05-31)
DX: I11.0 Hypertensive heart disease with heart failure (principal); I47.20 Ventricular tachycardia, unspecified; M62.82 Rhabdomyolysis; N17.9 Acute kidney failure, unspecified; R57.0 Cardiogenic shock; F11.20 Opioid dependence, uncomplicated; J43.9 Emphysema, unspecified; G40.909 Epilepsy, unspecified, not intractable, without status epilepticus; I48.0 Paroxysmal atrial fibrillation; I25.10 Atherosclerotic heart disease of native coronary artery without angina pectoris; K76.9 Liver disease, unspecified; R79.89 Other specified abnormal findings of blood chemistry; I46.9 Cardiac arrest, cause unspecified; I50.23 Acute on chronic systolic (congestive) heart failure; D64.9 Anemia, unspecified; R74.01 Elevation of levels of liver transaminase levels; J96.90 Respiratory failure, unspecified, unspecified whether with hypoxia or hypercapnia
CPT/HCPCS: 0241U-QW; 36415; 36430; 36600; 71045-TC-FY; 71250-TC; 76705-TC; 80048; 80053; 80061; 80076; 80162; 80164; 80307; 81003; 81240; 81241; 82550; 82553; 82803; 82962; 82977; 83516; 83605; 83615; 83690; 83735; 83880; 84100; 84439; 84443; 84484; 85025; 85027; 85230; 85362; 85379; 85384; 85610; 85730; 86038; 86704; 86803; 86850; 86900; 86901; 87040; 87081; 87340; 87517; 93005; 93010; 93976; 94002; 94640; 99291; P9017